=== PATIENT | male | born 1945 | race Caucasian/White ===

== ENCOUNTER → 2019-10-11 | Outpatient (CLI) | payer MEDICARE, OTHER | LOC: CARD 12:51 | PROVIDERS: ATTEND Internal Medicine Cardiovascular Disease | DX: I48.91 Unspecified atrial fibrillation (principal); E11.9 Type 2 diabetes mellitus without complications; I10 Essential (primary) hypertension; E78.2 Mixed hyperlipidemia; I08.0 Rheumatic disorders of both mitral and aortic valves | CPT/HCPCS: 93306 ==

== ENCOUNTER → 2022-01-28 | Outpatient (CLI) | payer MEDICARE, OTHER | LOC: CARD 11:29 | PROVIDERS: ATTEND Internal Medicine Cardiovascular Disease | DX: I08.3 Combined rheumatic disorders of mitral, aortic and tricuspid valves (principal); I48.21 Permanent atrial fibrillation | CPT/HCPCS: 93306 ==

== ENCOUNTER 2023-05-21 13:23 | Inpatient (IN) | payer MEDICARE, OTHER ==
[~2023-05-21] VITALS: Ht 161 cm; Wt 84.0 kg
[2023-05-21] MEDS ORDERED: NS IV 1000 ML 1,000 ML IV STA ×2 (13:41→14:10)
--- NOTE | 2023-05-21 13:41 | ED General ---
General Chief Complaint: Fever-Adult/Adol Stated Complaint: SHAKING Nursing Triage Note: PT STATES HAS BEEN SHAKING FOR APPROX 3 HOURS, PT HAS TEMP 38.4 UPON ARRIVAL, PT DENIES URINARY SX, PT STATES HAS A SL COUGH. DENIES PAIN Source of Information: Patient Exam Limitations: No Limitations History of Present Illness Date Seen by Provider: May 21, 2023 Time Seen by Provider: 13:31 Initial Comments Patient is an 78-year-old male with a history of A-fib chronically anticoagulated as well as prostate issues who presents to the emergency room with a chief complaint of "shaking" over the last 3 hours or so. He states it started around 11 AM. He was feeling fine prior to this. He states he has had a little intermittent dysuria over the past few days. His appetite is a little diminished this afternoon, he did have some breakfast this morning. He has a mild cough that is not productive of any sputum. He denies runny nose, earache or sore throat. No chest pain. No palpitations. No abdominal pain, nausea or vomiting. Normal bowel movements. Has a follow-up scheduled with a urologist in [place] in June. He states that he is compliant with his daily medications including his blood thinners. Notably on physical exam he is slightly tachycardic at 112. Blood pressure is good. Room air sats are good. His temp is 101. He does have a fairly edematous left leg that he states is not bothering him. Timing/Duration: 1-3 Hours Severity: Moderate Associated Systoms: Malaise Allergies and Home Medications Allergies Coded Allergies: No Known Drug Allergies (Unverified , 05/21/23) Patient Home Medication List Home Medication List Reviewed: Yes Review of Systems Review of Systems Constitutional: see HPI, malaise EENTM: no symptoms reported Respiratory: cough Cardiovascular: no symptoms reported Gastrointestinal: no symptoms reported Genitourinary: dysuria Musculoskeletal: no symptoms reported Skin: no symptoms reported Psychiatric/Neurological: No Symptoms Reported All Other Systems Reviewed Negative Unless Noted: Yes Past Kordxpk-Hmojcg-Hsshpg Hx Patient Social History Tobacco Use?: No Substance use?: No Alcohol Use?: No Pt feels they are or have been: No Immunizations Up To Date First/Initial COVID19 Vaccinat: YES Second COVID19 Vaccination Jj: YES Past Medical History Surgery/Hospitalization HX: DIABETES, A-FIB, L SHOULDER REPLACEMENT Physical Exam Vital Signs Vital Signs - First Documented 05/21/23 13:30 Temp 38.4 Pulse 120 Resp 18 B/P (MAP) 144/62 (89) Pulse Ox 98 Capillary Refill : Less Than 3 Seconds Height, Weight, BMI Height: '" Weight: lbs. oz. kg; 25.00 BMI Method: General Appearance: No Apparent Distress, WD/WN Eyes: Bilateral Eye Normal Inspection, Bilateral Eye PERRL, Bilateral Eye EOMI HEENT: PERRL/EOMI Neck: Normal Inspection Respiratory: Lungs Clear, Normal Breath Sounds, No Accessory Muscle Use, No Respiratory Distress Cardiovascular: Regular Rate, Rhythm, Normal Peripheral Pulses, Tachycardia Gastrointestinal: Normal Bowel Sounds, Non Tender, Soft Extremity: Normal Range of Motion, Non Tender, No Calf Tenderness; No Calf Tenderness; Swelling (LLE, no) Neurologic/Psychiatric: Alert, Oriented x3, No Motor/Sensory Deficits, Normal Mood/Affect, roving court reporter II-XII Norm as Tested Skin: Normal Color, Warm/Dry; No Rash Focused Exam Lactate Level 05/21/23 17:20: Lactic Acid Level 3.19*H Time of Focused Exam: 15:30 Respiratory: Lungs Clear, Normal Breath Sounds, No Accessory Muscle Use, No Respiratory Distress Cardiovascular: Irregularly Irregular, Tachycardia Capillary Refill: Less Than 3 Seconds Peripheral Pulses: 1+ Radial Pulses (R), 1+ Radial Pulses (L) Skin: normal color, warm/dry Lactic Acid Level Laboratory Tests Test 05/21/23 13:35 05/21/23 15:34 05/21/23 17:20 Lactic Acid Level 4.93 MMOL/L (0.50-2.00) *H 3.02 MMOL/L (0.50-2.00) *H 3.19 MMOL/L (0.50-2.00) *H Within 3hrs of presentation: Admin fluids, Admin ABX, Blood cultures prior to ABX's, Focus exam, Lactate level Progress/Results/Core Measures Suspected Sepsis SIRS Temperature: Pulse: 120 Respiratory Rate: 18 Laboratory Tests 05/21/23 13:35: White Blood Count 6.2 Blood Pressure 144 /62 Mean: 89 05/21/23 17:20: Lactic Acid Level 3.19*H Laboratory Tests 05/21/23 13:35: Creatinine 1.29, INR Comment 3.6H, Platelet Count 135, Total Bilirubin 0.7 Results/Orders Lab Results Laboratory Tests Test 05/21/23 13:35 05/21/23 15:34 05/21/23 15:50 05/21/23 17:20 Range/Units White Blood Count 6.2 4.3-11.0 10^3/uL Red Blood Count 4.56 4.30-5.52 10^6/uL Hemoglobin 11.5 L 13.3-17.7 g/dL Hematocrit 37 L 40-54 % Mean Corpuscular Volume 82 80-99 fL Mean Corpuscular Hemoglobin 25 25-34 pg Mean Corpuscular Hemoglobin Concent 31 L 32-36 g/dL Red Cell Distribution Width 18.9 H 10.0-14.5 % Platelet Count 135 130-400 10^3/uL Mean Platelet Volume 10.9 9.0-12.2 fL Immature Granulocyte % (Auto) 0 % Neutrophils (%) (Auto) 90 H 42-75 % Lymphocytes (%) (Auto) 7 L 12-44 % Monocytes (%) (Auto) 2 0-12 % Eosinophils (%) (Auto) 0 0-10 % Basophils (%) (Auto) 0 0-10 % Neutrophils # (Auto) 5.6 1.8-7.8 10^3/uL Lymphocytes # (Auto) 0.4 L 1.0-4.0 10^3/uL Monocytes # (Auto) 0.2 0.0-1.0 10^3/uL Eosinophils # (Auto) 0.0 0.0-0.3 10^3/uL Basophils # (Auto) 0.0 0.0-0.1 10^3/uL Immature Granulocyte # (Auto) 0.0 0.0-0.1 10^3/uL Neutrophils % (Manual) 95 % Lymphocytes % (Manual) 5 % Monocytes % (Manual) 0 % Eosinophils % (Manual) 0 % Basophils % (Manual) 0 % Band Neutrophils 0 % Anisocytosis MODERATE Prothrombin Time 35.4 H 12.2-14.7 SEC INR Comment 3.6 H 0.8-1.4 Activated Partial Thromboplast Time 30 24-35 SEC Sodium Level 137 135-145 MMOL/L Potassium Level 4.4 3.6-5.0 MMOL/L Chloride Level 103 98-107 MMOL/L Carbon Dioxide Level 19 L 21-32 MMOL/L Anion Gap 15 H 5-14 MMOL/L Blood Urea Nitrogen 22 H 7-18 MG/DL Creatinine 1.29 0.60-1.30 MG/DL Estimat Glomerular Filtration Rate 56 BUN/Creatinine Ratio 17 Glucose Level 159 H 70-105 MG/DL Lactic Acid Level 4.93 *H 3.02 *H 3.19 *H 0.50-2.00 MMOL/L Calcium Level 8.9 8.5-10.1 MG/DL Corrected Calcium 9.1 8.5-10.1 MG/DL Total Bilirubin 0.7 0.1-1.0 MG/DL Aspartate Amino Transf (AST/SGOT) 28 5-34 U/L Alanine Aminotransferase (ALT/SGPT) 17 0-55 U/L Alkaline Phosphatase 82 40-136 U/L Total Protein 6.9 6.4-8.2 GM/DL Albumin 3.8 3.2-4.5 GM/DL Urine Color YELLOW Urine Clarity CLEAR Urine pH 5.5 5-9 Urine Specific [place] 1.015 L 1.016-1.022 Urine Protein NEGATIVE NEGATIVE Urine Glucose (UA) NEGATIVE NEGATIVE Urine Ketones NEGATIVE NEGATIVE Urine Nitrite NEGATIVE NEGATIVE Urine Bilirubin NEGATIVE NEGATIVE Urine Urobilinogen 1.0 < = 1.0 MG/DL Urine Leukocyte Esterase 2+ H NEGATIVE Urine RBC (Auto) 3+ H NEGATIVE Urine RBC 50-100 H /HPF Urine WBC 10-25 H /HPF Urine Squamous Epithelial Cells 0-2 /HPF Urine Crystals NONE /LPF Urine Bacteria FEW H /HPF Urine Casts NONE /LPF Urine Mucus NEGATIVE /LPF Urine Culture Indicated CULTURE PENDING My Orders Orders - ION ANNA MD Cbc With Automated Diff (05/21/23 13:41) Comprehensive Metabolic Panel (05/21/23 13:41) Blood Culture (05/21/23 13:41) Sputum Culture (05/21/23 13:41) Urinalysis (05/21/23 13:41) Urine Culture (05/21/23 13:41) Protime With Inr (05/21/23 13:41) Partial Thromboplastin Time (05/21/23 13:41) Chest 1 View, Ap/Pa Only (05/21/23 13:41) Ed Iv/Invasive Line Start (05/21/23 13:41) Ed Iv/Invasive Line Start (05/21/23 13:41) Vital Signs Adult Sepsis Patie Q15M (05/21/23 13:41) O2 (05/21/23 13:41) Remove Rings In Anticipation O (05/21/23 13:41) Lactic Acid Analyzer (05/21/23 13:41) Ns Iv 1000 Ml (Sodium Chloride 0.9%) (05/21/23 13:41) Acetaminophen Tablet (Tylenol Tablet) (05/21/23 13:45) Manual Differential (05/21/23 13:35) Ns Iv 1000 Ml (Sodium Chloride 0.9%) (05/21/23 14:10) Ceftriaxone Iv/Im (Rocephin Iv/Im) (05/21/23 14:30) Bladder Scan (05/21/23 15:34) Ct Chest/Abdomen/Pelvis Wo (05/21/23 16:34) Bladder Scan (05/21/23 16:34) Ed Admission (Communication) (05/21/23 18:19) Medications Given in ED Vital Signs/I&O 05/21/23 13:30 Temp 38.4 Pulse 120 Resp 18 B/P (MAP) 144/62 (89) Pulse Ox 98 Capillary Refill : Less Than 3 Seconds Blood Pressure Mean: 89 Progress Note #1: Time: 14:09 Progress Note NOtified by LEOBARDO Olmstead that patient's lactic acid just reported out at 4.9 Progress Note #2: Time: 14:10 Progress Note Patient seen and evaluated by me. Evaluation today includes physical exam, CBC, Chem-12, blood cultures, lactic acid, coags, urinalysis, single view chest x- ray. Pertinent physical exam findings well-developed well-nourished male in no acute distress with stable vital signs other than slight tachycardia at 112 bpm. Patient's lungs are clear, heart tachycardic. Distal pulses intact, 2+ radial pulses. Brisk capillary refill. Abdomen is soft and nontender. His left leg is quite edematous 2-3+ pitting edema. No focal neurologic findings. Differential diagnosis based on history and physical exam, urosepsis, bacteremia, pneumonia. Labs, independently reviewed and interpreted by me. His CBC shows a total white blood cell count of 6.2 with 98% segmented neutrophils, 7% lymphs. Hemoglobin of 11.5, hematocrit of 37. Platelet count is 135. Chem-12 shows a CO2 slightly low at 19. His BUN and creatinine are 22 and 1.29. Serum glucose slightly elevated at 159. His LFTs are normal. Urine specimen has not been obtained as of yet. His lactic acid is quite elevated at 4.93. PT 35, INR 3.6, PTT 30. Chest x-ray reveals 2 small 1 cm nodules in the left lung delgadillo. No effusion. He does have some haziness over the costophrenic angle on the left. Patient is treated in the emergency department initially with a gram of Tylenol and 1 L of normal saline. Calculating out his 30 mils per kilogram fluid bolus for severe sepsis he would receive a total of 2310 mL.. Awaiting urine specimen to evaluate for urinary tract infection. No ahead and order antibiotics at this time as I am quite sure with his dysuria this is the etiology of his fever. Progress Note #3: Time: 15:36 Progress Note Patient still has not produced a Urine specimen (abx not given yet) will bladder scan and straight cath. Progress Note #4: Time: 18:00 Progress Note Case was discussed with Dr Ortiz ([facility] Hospitalist) who requested post void bladder scan and CT Chest and Abd/pelvis non contrast. Patient was able to void a second time and residual was 5ml. HIs CT was quite concerning for prostatic malignancy with mass identified in the region of the prostate and multiple other findings concerning for metastasis. I was able to go in and speak with the patient and his sister who is at the bedside and relay these findings. Many que stions and concerns as to how he will move forward that I deferred to asking his inpatient team. Patient is feeling much better with IVF and has received Rocephin for suspected UTI. HIs Lactic has decreased to 3. Dr Ortiz would like him overnight in the ICU. HR still about 103 with slightly lower BP in the 110 systolic range. Diagnostic Imaging Diagonstic Imaging: Xray Plain Films/CT/US/NM/MRI: chest Comments NAME: BEN GREGORY MED REC#: [id number] PT STATUS: REG ER : 1945 PHYSICIAN: ION ANNA MD ADMIT DATE: 05/21/23/ER Draft Date of Exam:05/21/23 CHEST 1 VIEW, AP/PA ONLY INDICATION: Fever. COMPARISON: None. FINDINGS: Single frontal radiographic view of the chest was obtained and shows normal cardiac silhouette and pulmonary vasculature. Evaluation of the lung delgadillo demonstrates two nodules projecting over the left lung. These measure 1.2 and 1.1 cm. No large effusion or pneumothorax is seen. Osseous structures show no gross acute abnormalities. IMPRESSION: 1. Left-sided pulmonary nodular opacities. In the setting of fever, septic emboli should be within the differential. True soft tissue nodule is also consideration. Correlation with CT chest is advised. Dictated on workstation # [id number] Dict: 05/21/23 1401 Trans: 05/21/23 1404 [id number] Interpreted by: SNEHA FORD MD Electronically signed by: [facility]: CT Comments [facility] [place], [place] NAME: BEN GREGORY [facility] REC#: [id number] PT STATUS: REG ER : 1945 PHYSICIAN: ION ANNA MD ADMIT DATE: 05/21/23/ER Signed Date of Exam:05/21/23 CT CHEST/ABDOMEN/PELVIS WO Procedure: CT chest, abdomen, and pelvis without contrast. Technique: Multiple contiguous axial images were obtained through the chest, abdomen, and pelvis without the use of intravenous contrast. Auto Exposure Controls were utilized during the CT exam to meet ALARA standards for radiation dose reduction. Date: May 21, 2023. Indication: 78-year-old male, pulmonary nodules, hematuria. Comparison: Chest radiograph May 21, 2023. No additional comparison imaging is not available. Findings: There are numerous noncalcified bilateral pulmonary nodules. One of the largest in the right lower lobe is on axial image 77 and measures 2.6 cm in size. One of the largest in the left lower lobe as on axial image 73 measuring 1.7 cm in size. One of the largest in the left upper lobe measures 1.5 cm in size on axial image 75. Numerous additional smaller nodules are present in the right upper lobe, right middle lobe, left lower lobe, left upper lobe. There is no pneumothorax. There is no pleural effusion. The central airways are patent. There is mild atelectasis in the left lower lobe. There is no additional focal airspace consolidation. There are coronary artery calcifications and additional areas of atherosclerotic disease. The heart is not grossly enlarged. There is no abnormally enlarged mediastinal or axillary lymph node meeting CT size criteria for adenopathy. The liver is grossly unremarkable in size and contour. There are multiple gallstones. There is no evidence of acute cholecystitis. There is no biliary ductal dilation. Noncontrast pancreatic parenchymal assessment is unremarkable. The spleen is normal in size. There is a low-attenuation left renal lesion measuring 2.8 cm size in axial image 120. Internal attenuation is 9 Hounsfield units consistent with benign cyst. There is an additional left renal lesion on axial image 137 measuring 2.2 cm in size. Internal attenuation is 25 Hounsfield units which is indeterminate. There is a right renal cyst on axial image 149 which measures 6.5 cm in size. There is an exophytic benign right renal cyst on axial image 151 as well. There are nonobstructing left renal stones. There is no hydronephrosis. There is no identified ureteral stone. There is a small left posterolateral urinary bladder diverticulum on axial image 196. There is masslike prominence centered in the region of the prostate extending beyond the expected pancreatic margins and also in the region of the urinary bladder. There is direct contact of the distal sigmoid colon near the level of the rectosigmoid junction. There is mild diverticulosis without evidence of acute diverticulitis. There is no evidence of acute appendicitis. There is no free intraperitoneal air. There is no drainable fluid collection. There are atherosclerotic calcifications. There is a right pelvic sidewall lymph node on axial image 199 likely reflecting metastatic brenda disease measuring 9 mm in short axis. There is nonspecific subcutaneous edema at the level of the left thigh. There are multilevel degenerative changes of the spine. 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 There is no identified bone lesion concerning for a bone metastasis. Impression: 1. 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 2. Large mass centered in the region of the prostate extending in the region of the anterior bladder and also directly contacting the distal sigmoid colon near the level of the rectosigmoid junction concerning for malignancy at this site. 3. 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 4. Indeterminate left renal lesion measuring 2.2 cm in size. Dedicated renal mass protocol CT abdomen without and with intravenous contrast is recommended for further assessment. Dictated by: Dictated on workstation # [id number] Dict: 05/21/23 1654 Trans: 05/21/23 1718 [id number] Interpreted by: JACKIE WILLIAM MD Electronically signed by: JACKIE WILLIAM MD 05/21/238 Departure Communication (Admissions) Time/Spoke to Admitting Phy: 16:[address] Ortiz on for [facility] Hospitalist Impression Primary Impression: Sepsis Qualified Codes: A41.9 - Sepsis, unspecified organism Additional Impressions: UTI (urinary tract infection) Qualified Codes: N39.0 - Urinary tract infection, site not specified; R31.9 - Hematuria, unspecified Prostate mass Disposition: ADMITTED INPATIENT Condition: Stable Admissions Decision to Admit Reason: Admit from ER (General) Decision to Admit/Date: May 21, 2023 Time/Decision to Admit Time: 15:36 Departure-Patient Inst. Referrals: [facility] (PCP) Primary Care Physician VIKAS GOODWIN APRN (Family) Primary Care Physician Copy Copies To 1: NEHAL MERINO KATHRYN M MD May 21, 2023 13:41
[2023-05-21] MEDS ORDERED: ACETAMINOPHEN 500 MG TAB (TYLENOL) PO ONE (13:45)
[2023-05-21 13:47] LABS: BASOPHILS % (AUTO) 0 % (0-10); EOSINOPHILS % (AUTO) 0 % (0-10); HEMATOCRIT 37 % (40-54); HEMOGLOBIN 11.5 g/dL (13.3-17.7); LYMPHOCYTES # (AUTO) 0.4 10^3/uL (1.0-4.0); LYMPHOCYTES % (AUTO) 7 % (12-44); MEAN CORPUSCULAR HEMOGLOBIN 25 pg (25-34); MEAN CORPUSCULAR HGB CONC 31 g/dL (32-36); MEAN CORPUSCULAR VOLUME 82 fL (80-99); MEAN PLATELET VOLUME 10.9 fL (9.0-12.2); MONOCYTES # (AUTO) 0.2 10^3/uL (0.0-1.0); MONOCYTES % (AUTO) 2 % (0-12); NEUTROPHILS # (AUTO) 5.6 10^3/uL (1.8-7.8); NEUTROPHILS % (AUTO) 90 % (42-75); PLATELET COUNT 135 10^3/uL (130-400); WHITE BLOOD COUNT 6.2 10^3/uL (4.3-11.0)
[2023-05-21 13:52] LABS: ALBUMIN 3.8 GM/DL (3.2-4.5); INR 3.6 (0.8-1.4); POTASSIUM 4.4 MMOL/L (3.6-5.0); PROTHROMBIN TIME PATIENT 35.4 SEC (12.2-14.7)
[2023-05-21 13:53] LABS: CALCIUM 8.9 MG/DL (8.5-10.1)
[2023-05-21 13:55] LABS: TOTAL PROTEIN 6.9 GM/DL (6.4-8.2)
[2023-05-21 13:56] LABS: BILIRUBIN,TOTAL 0.7 MG/DL (0.1-1.0)
[2023-05-21 13:58] LABS: CREATININE SERUM 1.29 MG/DL (0.60-1.30)
[2023-05-21 14:02] LABS: ANISOCYTOSIS MODERATE; BAND NEUTROPHILS 0 %; BASOPHILS % (MANUAL) 0 %; EOSINOPHILS % (MANUAL) 0 %; LYMPHOCYTES % (MANUAL) 5 %; MONOCYTES % (MANUAL) 0 %; NEUTROPHILS % (MANUAL) 95 %
--- NOTE | 2023-05-21 14:05 | Diagnostic Imaging Report ---
INDICATION: Fever. COMPARISON: None. FINDINGS: Single frontal radiographic view of the chest was obtained and shows normal cardiac silhouette and pulmonary vasculature. Evaluation of the lung delgadillo demonstrates two nodules projecting over the left lung. These measure 1.2 and 1.1 cm. No large effusion or pneumothorax is seen. Osseous structures show no gross acute abnormalities. IMPRESSION: 1. Left-sided pulmonary nodular opacities. In the setting of fever, septic emboli should be within the differential. True soft tissue nodule is also consideration. Correlation with CT chest is advised. Dictated by: Dictated on workstation # [id number]
[2023-05-21] MEDS ORDERED: cefTRIAXone IV/IM 1,000 MG in NS (IVPB) 50 ML IV ONE (14:30)
[2023-05-21 16:00] LABS: BILIRUBIN,URINE NEGATIVE (NEGATIVE); CLARITY,URINE CLEAR; COLOR,URINE YELLOW; GLUCOSE, URINE (UA) NEGATIVE (NEGATIVE); KETONES,URINE NEGATIVE (NEGATIVE); LEUKOCYTE ESTERASE ,URINE 2+ (NEGATIVE); NITRITE,URINE NEGATIVE (NEGATIVE); PH,URINE 5.5 (5-9); PROTEIN,URINE NEGATIVE (NEGATIVE)
[2023-05-21 16:11] LABS: RBC,URINE 50-100 /HPF
[2023-05-21 16:12] LABS: BACTERIA,URINE FEW /HPF; SQUAMOUS EPITHELIAL CELL,UR 0-2 /HPF
--- NOTE | 2023-05-21 17:08 | Diagnostic Imaging Report ---
Procedure: CT chest, abdomen, and pelvis without contrast. Technique: Multiple contiguous axial images were obtained through the chest, abdomen, and pelvis without the use of intravenous contrast. Auto Exposure Controls were utilized during the CT exam to meet ALARA standards for radiation dose reduction. Date: May 21, 2023. Indication: 78-year-old male, pulmonary nodules, hematuria. Comparison: Chest radiograph May 21, 2023. No additional comparison imaging is not available. Findings: There are numerous noncalcified bilateral pulmonary nodules. One of the largest in the right lower lobe is on axial image 77 and measures 2.6 cm in size. One of the largest in the left lower lobe as on axial image 73 measuring 1.7 cm in size. One of the largest in the left upper lobe measures 1.5 cm in size on axial image 75. Numerous additional smaller nodules are present in the right upper lobe, right middle lobe, left lower lobe, left upper lobe. There is no pneumothorax. There is no pleural effusion. The central airways are patent. There is mild atelectasis in the left lower lobe. There is no additional focal airspace consolidation. There are coronary artery calcifications and additional areas of atherosclerotic disease. The heart is not grossly enlarged. There is no abnormally enlarged mediastinal or axillary lymph node meeting CT size criteria for adenopathy. The liver is grossly unremarkable in size and contour. There are multiple gallstones. There is no evidence of acute cholecystitis. There is no biliary ductal dilation. Noncontrast pancreatic parenchymal assessment is unremarkable. The spleen is normal in size. There is a low-attenuation left renal lesion measuring 2.8 cm size in axial image 120. Internal attenuation is 9 Hounsfield units consistent with benign cyst. There is an additional left renal lesion on axial image 137 measuring 2.2 cm in size. Internal attenuation is 25 Hounsfield units which is indeterminate. There is a right renal cyst on axial image 149 which measures 6.5 cm in size. There is an exophytic benign right renal cyst on axial image 151 as well. There are nonobstructing left renal stones. There is no hydronephrosis. There is no identified ureteral stone. There is a small left posterolateral urinary bladder diverticulum on axial image 196. There is masslike prominence centered in the region of the prostate extending beyond the expected pancreatic margins and also in the region of the urinary bladder. There is direct contact of the distal sigmoid colon near the level of the rectosigmoid junction. There is mild diverticulosis without evidence of acute diverticulitis. There is no evidence of acute appendicitis. There is no free intraperitoneal air. There is no drainable fluid collection. There are atherosclerotic calcifications. There is a right pelvic sidewall lymph node on axial image 199 likely reflecting metastatic brenda disease measuring 9 mm in short axis. There is nonspecific subcutaneous edema at the level of the left thigh. There are multilevel degenerative changes of the spine. 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 There is no identified bone lesion concerning for a bone metastasis. Impression: 1. 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 2. Large mass centered in the region of the prostate extending in the region of the anterior bladder and also directly contacting the distal sigmoid colon near the level of the rectosigmoid junction concerning for malignancy at this site. 3. 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 4. Indeterminate left renal lesion measuring 2.2 cm in size. Dedicated renal mass protocol CT abdomen without and with intravenous contrast is recommended for further assessment. Dictated by: Dictated on workstation # [id number]
[2023-05-21] MEDS ORDERED: ANTACID SUSP 30 ML UDC (MYLANTA) PO PRN (18:30)
[2023-05-21] MEDS ORDERED: polyethylene glycoL POWDER 17 GM (MIRALAX) PACK PO PRN (18:30)
[2023-05-21] MEDS ORDERED: ACETAMINOPHEN 325 MG TABLET PO PRN (18:30)
[2023-05-21] MEDS ORDERED: BISACODYL 10 MG SUPP (DULCOLAX) PR PRN (18:30)
[2023-05-21] MEDS ORDERED: MILK OF MAGNESIA 400 MG/5 ML 30 ML UDC PO PRN (18:30)
[2023-05-21] MEDS ORDERED: diphenhydrAMINE 50 MG/ML INJ (BENADRYL) IVP PRN (18:30)
[2023-05-21] MEDS ORDERED: CALCIUM CARBONATE 500 MG (TUMS) TAB.CHEW PO PRN (18:30)
[2023-05-21] MEDS ORDERED: NS IV 500 ML 500 ML IV PRN (18:30)
[2023-05-21] MEDS ORDERED: LACTULOSE SYRUP 10GM/15ML (ENULOSE) 30ML UDC PO PRN (18:30)
[2023-05-21] MEDS ORDERED: ONDANSETRON 4 MG/2 ML (SDV) Z0FRAN IV PRN (18:30)
[2023-05-21] MEDS ORDERED: diphenhydrAMINE 25 MG TAB (BENADRYL) PO PRN (18:30)
[2023-05-21] MEDS ORDERED: MELATONIN 3 MG TABLET PO PRN (18:30)
[2023-05-21] MEDS ORDERED: HYDROmorphone 2 MG/ML VIAL (DILAUDID) IV PRN (18:30)
[2023-05-21] MEDS ORDERED: ONDANSETRON 4 MG (ZOFRAN) ORAL DISSOLVE TAB PO PRN (18:30)
[2023-05-21 18:53] VITALS: BP 144/62
[2023-05-21] MEDS ORDERED: RT-ALBUTEROL SULF 2.5 MG/3 ML PRE-MIX VIAL INH PRN (19:00)
[2023-05-21] MEDS: NS IV 1000 ML 1,000 ML IV SCH (19:33)
[2023-05-21] MEDS: SENNOSIDES 8.6 MG (SENOKOT) TAB PO SCH (20:10)
[2023-05-21] MEDS: DOCUSATE SODIUM 100 MG (COLACE) CAP PO SCH (20:10)
[2023-05-22] MEDS: NS IV 1000 ML 1,000 ML IV SCH ×3 (02:02→20:56)
[2023-05-22 04:59] LABS: BASOPHILS % (AUTO) 0 % (0-10); EOSINOPHILS % (AUTO) 0 % (0-10); HEMATOCRIT 31 % (40-54); HEMOGLOBIN 9.6 g/dL (13.3-17.7); LYMPHOCYTES # (AUTO) 0.1 10^3/uL (1.0-4.0); LYMPHOCYTES % (AUTO) 2 % (12-44); MEAN CORPUSCULAR HEMOGLOBIN 25 pg (25-34); MEAN CORPUSCULAR HGB CONC 32 g/dL (32-36); MEAN CORPUSCULAR VOLUME 80 fL (80-99); MEAN PLATELET VOLUME 11.8 fL (9.0-12.2); MONOCYTES # (AUTO) 0.2 10^3/uL (0.0-1.0); MONOCYTES % (AUTO) 2 % (0-12); NEUTROPHILS # (AUTO) 8.3 10^3/uL (1.8-7.8); NEUTROPHILS % (AUTO) 96 % (42-75); PLATELET COUNT 104 10^3/uL (130-400); WHITE BLOOD COUNT 8.7 10^3/uL (4.3-11.0)
[2023-05-22 05:18] LABS: ALBUMIN 3.1 GM/DL (3.2-4.5); POTASSIUM 4.4 MMOL/L (3.6-5.0)
[2023-05-22 05:20] LABS: CALCIUM 8.1 MG/DL (8.5-10.1)
[2023-05-22 05:21] LABS: TOTAL PROTEIN 5.8 GM/DL (6.4-8.2)
[2023-05-22 05:23] LABS: BILIRUBIN,TOTAL 0.9 MG/DL (0.1-1.0)
[2023-05-22 05:24] LABS: CREATININE SERUM 1.18 MG/DL (0.60-1.30)
[2023-05-22 05:27] LABS: MAGNESIUM 1.4 MG/DL (1.6-2.4)
[2023-05-22] MEDS: MAGNESIUM 1 GM/100 ML IVPB 100 ML IV SCH ×5 (05:49→12:12)
[2023-05-22] MEDS ORDERED: KCL 20 MEQ TAB (K-DUR) PO SCH (06:00)
[2023-05-22] MEDS ORDERED: POTASSIUM CL 10MEQ/50ML IVPB 50 ML IV SCH (06:00)
[2023-05-22] MEDS ORDERED: MAGNESIUM 1 GM/100 ML IVPB 100 ML IV SCH (06:00)
--- NOTE | 2023-05-22 09:07 | Diagnostic Imaging Report ---
EXAMINATION: Chest 1 view HISTORY: Sepsis COMPARISON: 05/21/2023 FINDINGS: No edema or pneumonia. No pleural effusion or pneumothorax. A few nodular opacities project over the lungs. IMPRESSION: 1. Nodular opacities projecting over the lungs in keeping with the nodule seen on prior CT. Dictated by: Dictated on workstation # [id number]
--- NOTE | 2023-05-22 09:32 | History & Physical-Hospitalist ---
VELMA RANDLE 05/22/23 0932: History of Present Illness HPI/Chief Complaint Everett Jung is an 78yo M with past medical history of atrial fibrillation on anticoagulation, BPH, and diabetes mellitus who presented to the ED on 05/21 with complaints of shaking that began mid day. He reported some dysuria for the previous few days. He denies any recent sick contacts. Denies feeling feverish at home but did not take his temperature. He has never had these types of symptoms before. Denies any pain but does report some discomfort when urinating that has improved since admission. In the ED he was found be tachycardic with a slight fever of 101. WBC was normal but lactic acid was significantly elevated at 4.9. His UA was positive for leukocyte esterase, RBCs, WBCs, and bacteria. He was started on ceftriaxone with cultures pending. CT chest ab pelv revealed likely extensive metastatic process. There is a large mass in the prostate extending to bladder and contacting sigmoid colon. Enlarged R pelvic lymph nodes. 2cm L renal mass, bilateral thyroid nodules consistent with mets. He also has 2 nodules in his L lung. ER physician discussed these findings with the patient and his sister. He was admitted for further management of his urosepsis. On exam today he reports feeling much better. Denies fever/chills. Says dysuria is somewhat improved. Still having some urinary urgency. Denies suprapubic pain. He also denies chest pain, shortness of breath, palpitations, N/V/D. Patient is requesting to visit with Dr. Rodriguez due to family recommendations. Source: patient Exam Limitations: no limitations Date Seen 05/22/23 Time Seen by a Provider: 09:27 Attending Physician Center/[facility] PCP Admitting Physician: Yamini Norwood DO Attending Physician: Yamini Norwood DO Referring Physician Date of Admission May 21, 2023 at 18:24 Home Medications & Allergies Home Medications Reviewed patient Home Medication Reconciliation performed by pharmacy medication reconciliations automotive exhaust emissions technician and/or nursing. Patients Allergies have been reviewed. Allergies Allergies Coded Allergies No Known Drug Allergies (Unverified05/21/23) Past Asjxbgr-Dzvgxn-Jxbphh Hx Patient Social History Tobacco Use?: No Use of E-Cig and/or Vaping dev: No Substance use?: No Alcohol Use?: Yes Alcohol type: Hard Liquor, Wine Alcohol Frequency: Couple times a week Pt feels they are or have been: No Immunizations Up To Date First/Initial COVID19 Vaccinat: YES Second COVID19 Vaccination Jj: YES Current Status Advance Directives: No Communicates: Verbally Primary Language: [place] Preferred Spoken Language: [place]ian Implanted or Applied Medical D: Orthopedic hardware Past Medical History Surgeries: Orthopedic (L shoulder) Atrial Fibrillation Prostate Problems Diabetes, Non-Insulin dep Loss of Vision: Denies Hearing Impairment: Denies Family Medical History No Pertinent Family Hx Review of Systems Constitutional: No chills, No diaphoresis, No fever EENTM: No hearing loss, No vision loss, No hoarseness, No throat pain Respiratory: cough; No short of breath, No wheezing Cardiovascular: No chest pain, No palpitations Gastrointestinal: No abdominal pain, No nausea, No vomiting Genitourinary: dysuria, frequency; No hematuria Skin: No change in color Psychiatric/Neurological: Denies Headache, Denies Seizure, Denies Weakness Physical Exam Physical Exam Vital Signs Vital Signs - First Documented 05/21/23 05/21/23 13:30 18:53 Temp 38.4 Pulse 120 Resp 18 B/P (MAP) 144/62 (89) Pulse Ox 98 FiO2 21 Capillary Refill : Less Than 3 Seconds Height, Weight, BMI Height: '" Weight: lbs. oz. kg; 33.06 BMI Method: General Appearance: No Apparent Distress, WD/WN HEENT: PERRL/EOMI, Moist Mucous Membranes Neck: Supple Respiratory: Lungs Clear, Normal Breath Sounds, No Accessory Muscle Use Cardiovascular: Normal Peripheral Pulses, Irregularly Irregular, Tachycardia Gastrointestinal: Non Tender, Soft Rectal: Deferred Extremity: Swelling (LLE) Neurologic/Psychiatric: Alert, Oriented x3, Normal Mood/Affect Skin: Normal Color, Warm/Dry Results Results/Procedures Labs Laboratory Tests 05/21/23 13:35 05/22/23 04:19 Patient resulted labs reviewed. Imaging: Reviewed Imaging Films, Reviewed Imaging Report Assessment/Plan Admission Diagnosis UTI Sepsis Probable neoplasm with metastasis Assessment and Plan UTI Sepsis Lactic acidosis UA positive for LE, RBCs, WBCs, and bacteria Urine culture pending Blood culture pending Sepsis with tachycardia, lactic acidosis, tachypnea, and probable source of infection Continue ceftriaxone 1000mg q24hr continue IV fluids WBC normal continue monitoring lactic acid TeleICU consulted appreciate recs Probable malignancy with mets CT very suspicious for malignancy Will work on setting up close outpatient follow up with Dr Rodriguez, Heme/Onc after DC Patient aware of his CT finding per ED provider Prostatic mass could be predisposing him to UTI due to urinary stasis/ retention Chronic atrial fibrillation on anticoagulation xarelto 15mg daily continue telemetry Anemia Hgb 9.6 this morning down from 11.5 MCV low normal at 80 Likely related to chronic disease/ malignancy transfuse if less than 7 Monitor H/H daily Elevated INR 3.6 no signs of bleed, hemodynamically stable continue to monitor Diet- regular DVT ppx- anticoagulated with xarelto Code- full Move to 4th floor YAMINI NORWOOD DO 05/22/23 2133: Assessment/Plan Admission Diagnosis Admission Status: Inpatient Order (span 2 midnights) Reason for Inpatient Admission: sepsis Supervisory-Addendum Brief Verification & Attestation Participated in pt care: history, MDM, physical Personally performed: exam, history, MDM, supervision of care Care discussed with: Medical Student Procedures: n/a Results interpretation: Verified all documentation Verification and Attestation of Medical Student E/M Service A medical student performed and documented this service in my presence. I reviewed and verified all information documented by the medical student and made modifications to such information, when appropriate. I personally performed the physical exam and medical decision making. Yamini Norwood, May 22, 2023,21:33 VELMA RANDLE May 22, 2023 09:32 YAMINI NORWOOD DO May 22, 2023 21:33
--- NOTE | 2023-05-22 11:35 | Physical Therapy Evaluation ---
PT Evaluation-General Medical Diagnosis Admission Date May 22, 2023 at 09:43 Medical Diagnosis: sepsis/UTI Onset Date: May 22, 2023 Therapy Diagnosis Therapy Diagnosis: debility Precautions Precautions/Isolations: Fall Prevention, Standard Precautions Referral Physician: Diana Reason for Referral: Evaluation/Treatment Medical History Pertinent Medical History: Atrial Fib Current History ER secondary to "shaking" for 3 hours (fever) Social History Home: Single Level Current Living Status: Significant Other Entry Into Home: Stairs With Railing PT Steps Into Home: 2 Prior Prior Level of Function SCALE: Activities may be completed with or without assistive devices. 9-Gtseefdzok-eeyhhuq completes the activity by him/herself with no assistance from a helper. 5-Set-up or Clean-up Assistance-helper sets up or cleans up; patient completes activity. [place] assists only prior to or following the activity. 4-Supervision or Touching Assistance-helper provides verbal cues and/or touching /steadying and/or contact guard assistance as patient completes activity. Assistance may be provided throughout the activity or intermittently. 3-Partial/Moderate Assistance-helper does LESS THAN HALF the effort. [place] lifts, holds or supports trunk or limbs, but provides less than half the effort. 2-Substantial/Maximal Assistance-helper does MORE THAN HALF the effort. [place] lifts or holds trunk or limbs and provides more than half the effort. 8-Dbbfusjzp-lfzpno does ALL the effort. Patient does none of the effort to complete the activity. Or, the assistance of 2 or more helpers is required for the patient to complete the activity. If activity was not attempted, code reason: 7-Patient Refused. 9-Not Applicable-not attempted and the patient did not perform the activity before the current illness, exacerbation or injury. 10-Not Attempted due to Environmental Limitations-(lack of equipment, weather restraints, etc.). 88-Not Attempted due to Medical Conditions or Safety Concerns. Bed Mobility: 6 Transfers (B,C,W/C): 6 Gait: 6 Stairs: 6 Indoor Mobility (Ambulation): Independent Stairs: Independent Prior Devices Use: None PT Evaluation-Current Subjective Patient reports he is going to start using the 4WW he has in his car. Objective Patient Orientation: Normal For Age Attachments: IV ROM/Strength ROM Lower Extremities bilateral LE WFL Strength Lower Extremities 4/5 grossly bilateral LE all planes Integumentary/Posture Bowel Incontinence: No Bladder Incontinence: Yes Posture WFL Neuromuscular (Tone, Coordination, Reflexes) grossly intact Sensory Vision: Wears Glasses Hearing: Functional Transfers Lying to Sitting/Side of Bed(Q: 6 Sit to Stand (QC): 6 Chair/Tzk-ec-Eaeyl Xfer(QC): 6 Gait Mode of Locomotion: Walk Anticipated Mode of Locomotion: Walk Walk 10 feet (QC): 6 Walk 50 ft with 2 Turns(QC): 6 Walk 150 ft (QC): 6 Distance: 275' Gait Assistive Device: FWW Comments/Gait Description safe and functional with no deviation Balance Sitting Static: Normal Sitting Dynamic: Normal Standing Static: Normal Standing Dynamic: Normal Assessment/Needs Patient is currently at independent [facility] with all gross motor skills safely and does not require skilled PT intervention at this time. Rehab Potential: Fair PT Plan Treatment/Plan Treatment Plan: Discontinue PT, goals met Treatment Duration: May 22, 2023 Frequency: 1 time per week Estimated Hrs Per Day: .25 hour per day Patient and/or Family Agrees t: Yes Time Time In: 1115 Time Out: 1127 DATE: May 22, 2023 Total Billed Treatment Time: 12 Total Billed Treatment 1 visit EVMod 12 min JO ANN YANEZ PT May 22, 2023 11:35
--- NOTE | 2023-05-22 11:40 | Occupational Therapy Eval ---
OT Evaluation-General/PLF Medical Diagnosis Admission Date May 22, 2023 at 09:43 Medical Diagnosis: sepsis Onset Date: May 22, 2023 Therapy Diagnosis Therapy Diagnosis: low activity tolerance Precautions Precautions/Isolations: Fall Prevention, Standard Precautions Safety Interventions: Bed Exit Alarm (chair) Weight Bear Status Weight Bearing Restriction: Full Weight Bearing Referral Physician: ENMA Junior Reason: Evaluation/Treatment Medical History Additional Medical History 78yo M with past medical history of atrial fibrillation on anticoagulation, BPH, and diabetes mellitus who presented to the ED on 05/21 with complaints of shaking that began mid day. He reported some dysuria for the previous few days. He denies any recent sick contacts. Denies feeling feverish at home but did not take his temperature. He has never had these types of symptoms before. Denies any pain but does report some discomfort when urinating that has improved since admission. In the ED he was found be tachycardic with a slight fever of 101. WBC was normal but lactic acid was significantly elevated at 4.9. His UA was positive for leukocyte esterase, RBCs, WBCs, and bacteria. He was started on ceftriaxone with cultures pending. CT chest ab pelv revealed likely extensive metastatic process. There is a large mass in the prostate extending to bladder and contacting sigmoid colon. Enlarged R pelvic lymph nodes. 2cm L renal mass, bilateral thyroid nodules consistent with mets. He also has 2 nodules in his L lung. ER physician discussed these findings with the patient and his sister. He was admitted for further management of his urosepsis. Social History Home: Single Level Current Living Status: Alone Entry Into Home: Stairs With Railing Steps Into Home: 2 ADL-Prior Level of Function SCALE: Activities may be completed with or without assistive devices. 8-Gssgxrpncf-sqrluyk completes the activity by him/herself with no assistance from a helper. 5-Set-up or Clean-up Assistance-helper sets up or cleans up; patient completes activity. [place] assists only prior to or following the activity. 4-Supervision or Touching Assistance-helper provides verbal cues and/or touching/steadying and/or contact guard assistance as patient completes activity . Assistance may be provided throughout the activity or intermittently. 3-Partial/Moderate Assistance-helper does LESS THAN HALF the effort. [place] lifts, holds or supports trunk or limbs, but provides less than half the effort. 2-Substantial/Maximal Assistance-helper does MORE THAN HALF the effort. [place] lifts or holds trunk or limbs and provides more than half the effort. 1-Urpilgqno-ghdxab does ALL the effort. Patient does none of the effort to complete the activity. Or, the assistance of 2 or more helpers is required for the patient to complete the activity. If activity was not attempted, code reason: 7-Patient Refused. 9-Not Applicable-not attempted and the patient did not perform the activity before the current illness, exacerbation or injury. 10-Not Attempted due to Environmental Limitations-(lack of equipment, weather restraints, etc.). 88-Not Attempted due to Medical Conditions or Safety Concerns. Self Care: Independent Functional Cognition: Independent DME/Equipment: Grab Bars Drive Self: Yes OT Current Status Subjective Agreeable to therapy, wants to go home Mental Status/Objective Patient Orientation: Person, Place, Situation Current Glasses/Contacts: Yes Upper Extremity ROM BUE ROM WFLS Upper Extremity Coordination BUE INTACT Upper Extremity Sensation INTACT Upper Extremity Strength WFLs Edema: LE ADL-Treatment Eating (QC): 6 Oral Hygiene (QC): 6 Upper Body Dressing (QC): 6 Lower Body Dressing (QC): 6 On/Off Footwear (QC): 6 Toileting Hygiene (QC): 6 Education OT Patient Education: Purpose of tx/functional activities, Rehab process Response to Teaching: Verbalize Understanding OT Usp Goals Shot Polisher And Inspector Goals 1=Demonstrate adherence to instructed precautions during ADL tasks. 2=Patient will verbalize/demonstrate understanding of assistive devices/modifications for ADL. 3=Patient will improve strength/tolerance for activity to enable patient to perform ADL's. OT Education/Plan Problem List/Assessment Assessment: No Skilled OT Needs ID'd Discharge Recommendations Plan/Recommendations: Discontinue OT Treatment Plan/Plan of Care Treatment,Training & Education: Yes Patient would benefit from OT for education, treatment and training to promote independence in ADL's, mobility, safety and/or upper extremity function for ADL's. Plan of Care: OTHER (EVAL ONLY) Treatment Duration: May 22, 2023 Frequency: 1 time per week Estimated Hrs Per Day: .25 hour per day Agreement: Yes Rehab Potential: Good Time Start Time: 11:15 Stop Time: 11:27 DATE: May 22, 2023 Total Time Billed (hr/min): 12 Billed Treatment Time EVL 12 JOSE L BROWN OT May 22, 2023 11:40
[2023-05-22] MEDS: DOCUSATE SODIUM 100 MG (COLACE) CAP PO SCH ×2 (12:11→20:57)
[2023-05-22] MEDS: SENNOSIDES 8.6 MG (SENOKOT) TAB PO SCH ×2 (12:11→20:57)
[2023-05-22] MEDS ORDERED: LIRA0.6P SQ (13:19)
[2023-05-22] MEDS ORDERED: TMSL.4C PO (13:19)
[2023-05-22] MEDS ORDERED: OMEP20CA18 PO (13:19)
[2023-05-22] MEDS ORDERED: ROSU10TA28 PO (13:19)
[2023-05-22] MEDS ORDERED: SAW1CAPS8 PO (13:19)
[2023-05-22] MEDS ORDERED: PROB500T8 PO (13:19)
[2023-05-22] MEDS ORDERED: DILT-107 PO (13:19)
[2023-05-22] MEDS ORDERED: GABA-486 PO ×2 (13:19)
[2023-05-22] MEDS ORDERED: FINA5TAB6 PO (13:19)
[2023-05-22] MEDS ORDERED: RIVA20TA PO (13:19)
[2023-05-22] MEDS ORDERED: METF-478 PO (13:19)
[2023-05-22 14:15] VITALS: BP 139/73
[2023-05-22] MEDS ORDERED: cefTRIAXone IV/IM 1,000 MG in NS (IVPB) 50 ML IV SCH (15:00)
[2023-05-22 17:00] VITALS: BP 163/91
[2023-05-22] MEDS: RIVAROXABAN 15 MG TABLET (XARELTO) PO SCH (17:07)
[2023-05-22 19:34] VITALS: BP 152/85
[2023-05-23] VITALS (9 sets, daily range): BP systolic 135–174; BP diastolic 83–98
[2023-05-23] MEDS: NS IV 1000 ML 1,000 ML IV SCH (05:07)
[2023-05-23 05:43] LABS: HEMOGLOBIN 10.3 g/dL (13.3-17.7); MEAN CORPUSCULAR VOLUME 80 fL (80-99)
[2023-05-23 05:45] LABS: BASOPHILS % (AUTO) 0 % (0-10); EOSINOPHILS % (AUTO) 0 % (0-10); HEMATOCRIT 32 % (40-54); LYMPHOCYTES # (AUTO) 0.6 10^3/uL (1.0-4.0); LYMPHOCYTES % (AUTO) 11 % (12-44); MEAN CORPUSCULAR HEMOGLOBIN 25 pg (25-34); MEAN CORPUSCULAR HGB CONC 32 g/dL (32-36); MEAN PLATELET VOLUME 11.7 fL (9.0-12.2); MONOCYTES # (AUTO) 0.3 10^3/uL (0.0-1.0); MONOCYTES % (AUTO) 5 % (0-12); NEUTROPHILS # (AUTO) 4.2 10^3/uL (1.8-7.8); NEUTROPHILS % (AUTO) 81 % (42-75); PLATELET COUNT 95 10^3/uL (130-400); WHITE BLOOD COUNT 5.2 10^3/uL (4.3-11.0)
[2023-05-23 06:11] LABS: ALBUMIN 3.4 GM/DL (3.2-4.5); CALCIUM 8.5 MG/DL (8.5-10.1); CREATININE SERUM 1.15 MG/DL (0.60-1.30); TOTAL PROTEIN 6.2 GM/DL (6.4-8.2)
[2023-05-23] MEDS ORDERED: amLODIPine 5 MG (NORVASC) TAB PO ONE (08:15)
[2023-05-23] MEDS: DOCUSATE SODIUM 100 MG (COLACE) CAP PO SCH ×2 (08:20→20:24)
[2023-05-23] MEDS: SENNOSIDES 8.6 MG (SENOKOT) TAB PO SCH ×2 (08:21→20:24)
[2023-05-23] MEDS: AMPICILLIN/SULBACTAM 3 GM/NS 100 ML IVPB IV SCH ×6 (11:08→23:21)
--- NOTE | 2023-05-23 12:01 | Progress Note - Hospitalist ---
Subjective HPI/CC On Admission Date Seen by Provider: May 23, 2023 Time Seen by Provider: 11:00 Everett Jung is an 78yo M with past medical history of atrial fibrillation on anticoagulation, BPH, and diabetes mellitus who presented to the ED on 05/21 with complaints of shaking that began mid day. He reported some dysuria for the p revious few days. He denies any recent sick contacts. Denies feeling feverish at home but did not take his temperature. He has never had these types of symptoms before. Denies any pain but does report some discomfort when urinating that has improved since admission. In the ED he was found be tachycardic with a slight fever of 101. WBC was normal but lactic acid was significantly elevated at 4.9. His UA was positive for leukocyte esterase, RBCs, WBCs, and bacteria. He was started on ceftriaxone with cultures pending. CT chest ab pelv revealed likely extensive metastatic process. There is a large mass in the prostate extending to bladder and contacting sigmoid colon. Enlarged R pelvic lymph nodes. 2cm L renal mass, bilateral thyroid nodules consistent with mets. He also has 2 nodules in his L lung. ER physician discussed these findings with the patient and his sister. He was admitted for further management of his urosepsis. On exam today he reports feeling much better. Denies fever/chills. Says dysuria is somewhat improved. Still having some urinary urgency. Denies suprapubic pain. He also denies chest pain, shortness of breath, palpitations, N/V/D. Patient is requesting to visit with Dr. Rodriguez due to family recommendations. Subjective/Events-last exam No major issues Bacteremia of Enterococcus IV abx adjusted considering Cx No falls PT ordered Lives alone Labs reviewed Review of Systems General: Fatigue, Malaise Pulmonary: Dyspnea Focused Exam Lactate Level 05/21/23 17:20: Lactic Acid Level 3.19*H 05/21/23 19:43: Lactic Acid Level 3.45*H 05/21/23 21:47: Lactic Acid Level 4.46*H Time of Focused Exam: 15:30 Objective Exam Vital Signs Vital Signs Date Time Temp Pulse Resp B/P (MAP) Pulse Ox O2 Delivery O2 Flow Rate FiO2 05/23/23 21:00 108 145/83 (103) Room Air 05/23/23 20:11 37.8 18 93 05/21/23 18:53 21 Capillary Refill : Less Than 3 Seconds General Appearance: No Apparent Distress, WD/WN, Chronically ill Respiratory: Lungs Clear, Normal Breath Sounds Cardiovascular: Regular Rate, Rhythm Neurologic/Psychiatric: Alert, Oriented x3 Results/Procedures Lab Laboratory Tests 05/23/23 05:27 Patient resulted labs reviewed. Imaging: Reviewed Imaging Films, Reviewed Imaging Report Assessment/Plan Assessment and Plan Assess & Plan/Chief Complaint UTI Sepsis Lactic acidosis UA positive for LE, RBCs, WBCs, and bacteria Urine culture Enterococcus Blood culture Enterococcus Sepsis with tachycardia, lactic acidosis, tachypnea, and probable source of infection Change ceftriaxone 1000mg q24hr to Vanc DC IV fluids continue monitoring lactic acid TeleICU consulted appreciate recs Probable malignancy with mets CT very suspicious for malignancy Will work on setting up close outpatient follow up with Dr Rodriguez, Chris/Onc after DC Patient aware of his CT finding per ED provider Prostatic mass could be predisposing him to UTI due to urinary stasis/ retention Chronic atrial fibrillation on anticoagulation xarelto 15mg daily continue telemetry Anemia Hgb 9.6 this morning down from 11.5 MCV low normal at 80 Likely related to chronic disease/ malignancy transfuse if less than 7 Monitor H/H daily Elevated INR 3.6 no signs of bleed, hemodynamically stable continue to monitor Diet- regular DVT ppx- anticoagulated with xarelto Code- full ROXY NORWOOD DO May 23, 2023 12:01
[2023-05-23] MEDS: RIVAROXABAN 15 MG TABLET (XARELTO) PO SCH (18:07)
[2023-05-24 03:07] VITALS: BP 159/97
[2023-05-24] MEDS: AMPICILLIN/SULBACTAM 3 GM/NS 100 ML IVPB IV SCH ×8 (04:39→23:12)
[2023-05-24 06:10] LABS: BASOPHILS % (AUTO) 0 % (0-10); EOSINOPHILS # (AUTO) 0.1 10^3/uL (0.0-0.3); EOSINOPHILS % (AUTO) 1 % (0-10); HEMATOCRIT 32 % (40-54); HEMOGLOBIN 10.1 g/dL (13.3-17.7); LYMPHOCYTES # (AUTO) 0.7 10^3/uL (1.0-4.0); LYMPHOCYTES % (AUTO) 15 % (12-44); MEAN CORPUSCULAR HEMOGLOBIN 25 pg (25-34); MEAN CORPUSCULAR HGB CONC 32 g/dL (32-36); MEAN CORPUSCULAR VOLUME 79 fL (80-99); MEAN PLATELET VOLUME 11.9 fL (9.0-12.2); MONOCYTES # (AUTO) 0.5 10^3/uL (0.0-1.0); MONOCYTES % (AUTO) 10 % (0-12); NEUTROPHILS # (AUTO) 3.6 10^3/uL (1.8-7.8); NEUTROPHILS % (AUTO) 74 % (42-75); PLATELET COUNT 107 10^3/uL (130-400); WHITE BLOOD COUNT 4.8 10^3/uL (4.3-11.0)
[2023-05-24 06:24] LABS: ALBUMIN 3.4 GM/DL (3.2-4.5); BILIRUBIN,TOTAL 1.3 MG/DL (0.1-1.0); CALCIUM 8.8 MG/DL (8.5-10.1); MAGNESIUM 1.6 MG/DL (1.6-2.4); POTASSIUM 3.8 MMOL/L (3.6-5.0); TOTAL PROTEIN 6.4 GM/DL (6.4-8.2)
[2023-05-24 07:21] VITALS: BP 152/84
[2023-05-24] MEDS: SENNOSIDES 8.6 MG (SENOKOT) TAB PO SCH ×2 (08:07→21:23)
[2023-05-24] MEDS: amLODIPine 5 MG (NORVASC) TAB PO SCH (08:07)
[2023-05-24] MEDS: DOCUSATE SODIUM 100 MG (COLACE) CAP PO SCH ×2 (08:07→21:23)
--- NOTE | 2023-05-24 10:08 | Progress Note - Hospitalist ---
Subjective HPI/CC On Admission Date Seen by Provider: May 24, 2023 Time Seen by Provider: 09:30 Everett Jung is an 78yo M with past medical history of atrial fibrillation on anticoagulation, BPH, and diabetes mellitus who presented to the ED on 05/21 with complaints of shaking that began mid day. He reported some dysuria for the p revious few days. He denies any recent sick contacts. Denies feeling feverish at home but did not take his temperature. He has never had these types of symptoms before. Denies any pain but does report some discomfort when urinating that has improved since admission. In the ED he was found be tachycardic with a slight fever of 101. WBC was normal but lactic acid was significantly elevated at 4.9. His UA was positive for leukocyte esterase, RBCs, WBCs, and bacteria. He was started on ceftriaxone with cultures pending. CT chest ab pelv revealed likely extensive metastatic process. There is a large mass in the prostate extending to bladder and contacting sigmoid colon. Enlarged R pelvic lymph nodes. 2cm L renal mass, bilateral thyroid nodules consistent with mets. He also has 2 nodules in his L lung. ER physician discussed these findings with the patient and his sister. He was admitted for further management of his urosepsis. On exam today he reports feeling much better. Denies fever/chills. Says dysuria is somewhat improved. Still having some urinary urgency. Denies suprapubic pain. He also denies chest pain, shortness of breath, palpitations, N/V/D. Patient is requesting to visit with Dr. Rodriguez due to family recommendations. Subjective/Events-last exam Patient reports he is feeling better and he would like to go home. He denies dysuria pelvic pain abdominal pain or any bone related pain. He denies any recurrence of rigors or flank pain. Focused Exam Lactate Level 05/21/23 17:20: Lactic Acid Level 3.19*H 05/21/23 19:43: Lactic Acid Level 3.45*H 05/21/23 21:47: Lactic Acid Level 4.46*H Time of Focused Exam: 15:30 Objective Exam Vital Signs Vital Signs Date Time Temp Pulse Resp B/P (MAP) Pulse Ox O2 Delivery O2 Flow Rate FiO2 05/24/23 07:21 36.7 98 18 152/84 (106) 100 Room Air 05/21/23 18:53 21 Capillary Refill : Less Than 3 Seconds General Appearance: No Apparent Distress Respiratory: Chest Non Tender, Lungs Clear, Normal Breath Sounds, No Accessory Muscle Use, No Respiratory Distress Cardiovascular: No Gallop, No JVD, No Murmur, Irregularly Irregular Gastrointestinal: Normal Bowel Sounds, No Organomegaly, No Pulsatile Mass, Non Tender, Soft Results/Procedures Lab Laboratory Tests 05/24/23 05:20 Patient resulted labs reviewed. Imaging: Reviewed Imaging Films, Reviewed Imaging Report Assessment/Plan Assessment and Plan Assess & Plan/Chief Complaint UTI Sepsis Lactic acidosis UA positive for LE, RBCs, WBCs, and bacteria Urine culture Enterococcus Blood culture Enterococcus Sepsis with tachycardia, lactic acidosis, tachypnea, and probable source of infection Change ceftriaxone 1000mg q24hr to Vanc DC IV fluids continue monitoring lactic acid TeleICU consulted appreciate recs 05/24: Sepsis resolved did discuss considering Enterococcus sepsis due to UTI and likely widely metastatic prostate cancer recommendation for at least another day of IV antibiotics and need for follow-up with oncology for which the patient would like referral to Dr. Bradshaw as an outpatient. The patient is responding to ampicillin-sulbactam with low risk for VRE continue we will obtain a PSA. Probable malignancy with mets CT very suspicious for malignancy Will work on setting up close outpatient follow up with Dr Rodriguez, Chris/Onc after DC Patient aware of his CT finding per ED provider Prostatic mass could be predisposing him to UTI due to urinary stasis/ retention Chronic atrial fibrillation on anticoagulation xarelto 15mg daily continue telemetry Anemia Hgb 9.6 this morning down from 11.5 MCV low normal at 80 Likely related to chronic disease/ malignancy transfuse if less than 7 Monitor H/H daily HUMBERTO ALLRED MD May 24, 2023 10:08
[2023-05-24 11:22] VITALS: BP 121/84
[2023-05-24 16:37] VITALS: BP 121/71
[2023-05-24] MEDS: RIVAROXABAN 15 MG TABLET (XARELTO) PO SCH (17:20)
[2023-05-24 19:33] VITALS: BP 128/87
[2023-05-24 23:15] VITALS: BP 188/94
[2023-05-25 04:02] VITALS: BP 138/84
[2023-05-25] MEDS: AMPICILLIN/SULBACTAM 3 GM/NS 100 ML IVPB IV SCH ×4 (04:03→12:59)
[2023-05-25 05:51] LABS: BASOPHILS % (AUTO) 1 % (0-10); MEAN CORPUSCULAR HEMOGLOBIN 25 pg (25-34)
[2023-05-25 05:53] LABS: EOSINOPHILS # (AUTO) 0.1 10^3/uL (0.0-0.3); EOSINOPHILS % (AUTO) 2 % (0-10); HEMATOCRIT 31 % (40-54); LYMPHOCYTES # (AUTO) 0.8 10^3/uL (1.0-4.0); LYMPHOCYTES % (AUTO) 18 % (12-44); MEAN CORPUSCULAR HGB CONC 32 g/dL (32-36); MEAN CORPUSCULAR VOLUME 79 fL (80-99); MEAN PLATELET VOLUME 11.8 fL (9.0-12.2); MONOCYTES # (AUTO) 0.4 10^3/uL (0.0-1.0); MONOCYTES % (AUTO) 10 % (0-12); NEUTROPHILS % (AUTO) 69 % (42-75); PLATELET COUNT 104 10^3/uL (130-400); WHITE BLOOD COUNT 4.4 10^3/uL (4.3-11.0)
[2023-05-25 06:08] LABS: ALBUMIN 3.2 GM/DL (3.2-4.5)
[2023-05-25 06:09] LABS: POTASSIUM 3.5 MMOL/L (3.6-5.0)
[2023-05-25 06:10] LABS: CALCIUM 8.6 MG/DL (8.5-10.1)
[2023-05-25 06:11] LABS: TOTAL PROTEIN 6.1 GM/DL (6.4-8.2)
[2023-05-25 06:13] LABS: BILIRUBIN,TOTAL 0.9 MG/DL (0.1-1.0)
[2023-05-25 06:15] LABS: CREATININE SERUM 0.88 MG/DL (0.60-1.30)
[2023-05-25 06:18] LABS: MAGNESIUM 1.6 MG/DL (1.6-2.4)
[2023-05-25 07:20] VITALS: BP 140/81
[2023-05-25] MEDS: DOCUSATE SODIUM 100 MG (COLACE) CAP PO SCH (09:07)
[2023-05-25] MEDS: amLODIPine 5 MG (NORVASC) TAB PO SCH (09:07)
[2023-05-25] MEDS: SENNOSIDES 8.6 MG (SENOKOT) TAB PO SCH (09:08)
[2023-05-25 11:20] VITALS: BP 137/77
[2023-05-25] MEDS ORDERED: AMOX500C2 PO (12:53)
--- NOTE | 2023-05-25 12:59 | Discharge Summary ---
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 Primary [facility] Discharge Summary Discharge Physical Exam Allergies: Coded Allergies: No Known Drug Allergies (Unverified , 05/21/23) Vitals & I&Os Vital Signs Date Time Temp Pulse Resp B/P (MAP) Pulse Ox O2 Delivery O2 Flow Rate FiO2 05/25/23 11:20 36.4 93 18 137/77 (97) 97 Room Air 05/21/23 18:53 21 General Appearance: No Apparent Distress Respiratory: Chest Non Tender, Lungs Clear, Normal Breath Sounds, No Accessory Muscle Use, No Respiratory Distress Cardiovascular: Regular Rate, Rhythm, No Edema, No Gallop, No JVD, No Murmur, Normal Peripheral Pulses Gastrointestinal: Normal Bowel Sounds, No Organomegaly, No Pulsatile Mass, Non Tender, Soft Hospital Course Everett Jung is an 78yo M with past medical history of atrial fibrillation on anticoagulation, BPH, and diabetes mellitus who presented to the ED on 05/21 with complaints of shaking that began mid day. He reported some dysuria for the previous few days. He denies any recent sick contacts. Denies feeling feverish at home but did not take his temperature. He has never had these types of symptoms before. Denies any pain but does report some discomfort when urinating that has improved since admission. In the ED he was found be tachycardic with a slight fever of 101. WBC was normal but lactic acid was significantly elevated at 4.9. His UA was positive for leukocyte esterase, RBCs, WBCs, and bacteria. He was started on ceftriaxone with cultures pending. CT chest ab pelv revealed likely extensive metastatic process. There is a large mass in the prostate extending to bladder and contacting sigmoid colon. Enlarged R pelvic lymph nodes. 2cm L renal mass, bilateral thyroid nodules consistent with mets. He also has 2 nodules in his L lung. ER physician discussed these findings with the patient and his sister. He was admitted for further management of his urosepsis.Patient's urine culture grew out Enterococcus faecalis sensitive to penicillin. He had rather quick defervescent's of fever with reported no difficulty in urination. Unfortunately CT scan revealed a large mass in the location of the prostate encroaching on the bladder without evidence for hydronephrosis and again no reported urinary difficulty according to the patient. He had multiple pulmonary nodules suspicious for metastatic disease which would be unusual for prostate cancer With some pelvic lymphadenopathy likely metastatic as well. Discussed the case with Dr. Sanchez who is expecting to see the patient in the near future. A PSA was obtained and pending at this time. Patient was instructed to call Dr. Sanchez office Friday to obtain follow-up appointment will continue his home medications plus amoxicillin 500 mg 3 times daily for another 5 days.. Labs (last 24 hrs) Laboratory Tests 05/25/23 05:20: White Blood Count 4.4, Red Blood Count 3.98L, Hemoglobin 10.0L, Hematocrit 31L, Mean Corpuscular Volume 79L, Mean Corpuscular Hemoglobin 25, Mean Corpuscular Hemoglobin Concent 32, Red Cell Distribution Width 18.9H, Platelet Count 104L, Mean Platelet Volume 11.8, Immature Granulocyte % (Auto) 1, Neutrophils (%) (Auto) 69, Lymphocytes (%) (Auto) 18, Monocytes (%) (Auto) 10, Eosinophils (%) (Auto) 2, Basophils (%) (Auto) 1, Neutrophils # (Auto) 3.0, Lymphocytes # (Auto) 0.8L, Monocytes # (Auto) 0.4, Eosinophils # (Auto) 0.1, Basophils # (Auto) 0.0, Immature Granulocyte # (Auto) 0.0, Percent Immature Platelet Fraction 7.8H, Sodium Level 143, Potassium Level 3.5L, Chloride Level 110H, Carbon Dioxide Level 22, Anion Gap 11, Blood Urea Nitrogen 16, Creatinine 0.88, Estimat Glomerular Filtration Rate 87, BUN/Creatinine Ratio 18, Glucose Level 111H, Calcium Level 8.6, Corrected Calcium 9.2, Magnesium Level 1.6, Total Bilirubin 0.9, Aspartate Amino Transf (AST/SGOT) 35H, Alanine Aminotransferase (ALT/SGPT) 34, Alkaline Phosphatase 95, Total Protein 6.1L, Albumin 3.2 Microbiology 05/21/23 MRSA Screen - Final, Complete MRSA not isolated 05/21/23 Urine Culture - Preliminary, Resulted Enterococcus faecalis 05/21/23 Blood Culture - Final, Complete Enterococcus faecalis Patient resulted labs reviewed. Pending Labs Laboratory Tests 05/25/23 05:20: White Blood Count 4.4, Red Blood Count 3.98, Hemoglobin 10.0, Hematocrit 31, Mean Corpuscular Volume 79, Mean Corpuscular Hemoglobin 25, Mean Corpuscular Hemoglobin Concent 32, Red Cell Distribution Width 18.9, Platelet Count 104, Mean Platelet Volume 11.8, Immature Granulocyte % (Auto) 1, Neutrophils (%) (Auto) 69, Lymphocytes (%) (Auto) 18, Monocytes (%) (Auto) 10, Eosinophils (%) (Auto) 2, Basophils (%) (Auto) 1, Neutrophils # (Auto) 3.0, Lymphocytes # (Auto) 0.8, Monocytes # (Auto) 0.4, Eosinophils # (Auto) 0.1, Basophils # (Auto) 0.0, Immature Granulocyte # (Auto) 0.0, Percent Immature Platelet Fraction 7.8, Sodium Level 143, Potassium Level 3.5, Chloride Level 110, Carbon Dioxide Level 22, Anion Gap 11, Blood Urea Nitrogen 16, Creatinine 0.88, Estimat Glomerular Filtration Rate 87, BUN/Creatinine Ratio 18, Glucose Level 111, Calcium Level 8.6, Corrected Calcium 9.2, Magnesium Level 1.6, Total Bilirubin 0.9, Aspartate Amino Transf (AST/SGOT) 35, Alanine Aminotransferase (ALT/SGPT) 34, Alkaline Phosphatase 95, Total Protein 6.1, Albumin 3.2 Imaging: Reviewed Imaging Films, Reviewed Imaging Report Discussion & Recommendations Discharge Planning: >30 minutes discharge planning Discharge Home Medications: Active Scripts Active Amoxicillin 500 Mg Capsule 500 Mg PO TID 5 Days Reported Saw [place] 450 mg Capsule (Saw [place] Fruit/Zinc Picoli) 450 Mg-15 Mg Capsule 2 Each PO HS Metformin HCl ER (Metformin HCl) 500 Mg Tab.er.24 500 Mg PO BID Diltiazem ER (Diltiazem HCl) 180 Mg Cap.er.deg 180 Mg PO DAILY Omeprazole 20 Mg Capsule.dr 20 Mg PO DAILY Probenecid 500 Mg Tablet 250 Mg PO BID TAKES OF A 250MG TAB Rosuvastatin Calcium 10 Mg Tablet 10 Mg PO HS Finasteride 5 Mg Tablet 5 Mg PO DAILY Flomax (Tamsulosin HCl) 0.4 Mg Cap 0.4 Mg PO HS Xarelto (Rivaroxaban) 20 Mg Tablet 20 Mg PO 1800 Gabapentin 100 Mg Capsule 200 Mg PO HS TAKES 2 (100MG) CAPS Gabapentin 100 Mg Capsule 100 Mg PO DAILY Victoza 2-Jer (Liraglutide) 0.6 Mg/0.1 Ml (18 Mg/3 Ml) Pen.injctr 1.8 Mg SQ DAILY Instructions to patient/family Please see electronic discharge instructions given to patient. Copy Copies To 2: [facility]/HUMBERTO SIMPSON MD May 25, 2023 12:59
== END 2023-05-25 14:22 | disposition home or self-care (01) | DRG 872 ==
LOC: EDUNIT# 13:23 → ER 13:24 → ICU 18:24 → OBSVTOIN 05-22 09:43 → 4TH 05-22 14:10
PROVIDERS: ADMIT Internal Medicine; ATTEND Internal Medicine
DX: A41.81 Sepsis due to Enterococcus (principal); N39.0 Urinary tract infection, site not specified; E87.20 Acidosis, unspecified; C78.5 Secondary malignant neoplasm of large intestine and rectum; C77.5 Secondary and unspecified malignant neoplasm of intrapelvic lymph nodes; C78.02 Secondary malignant neoplasm of left lung; C79.11 Secondary malignant neoplasm of bladder; C79.02 Secondary malignant neoplasm of left kidney and renal pelvis; C79.89 Secondary malignant neoplasm of other specified sites; I48.20 Chronic atrial fibrillation, unspecified; C61 Malignant neoplasm of prostate; N40.1 Benign prostatic hyperplasia with lower urinary tract symptoms; R33.8 Other retention of urine; R30.0 Dysuria; E11.9 Type 2 diabetes mellitus without complications; D64.9 Anemia, unspecified; Z79.01 Long term (current) use of anticoagulants; Z79.85 Long-term (current) use of injectable non-insulin antidiabetic drugs; Z79.84 Long term (current) use of oral hypoglycemic drugs; Z96.612 Presence of left artificial shoulder joint
CPT/HCPCS: 36415; 71045; 71250; 74176; 80053; 81000; 83605; 83735; 84100; 84153; 85007; 85025; 85027; 85610; 85730; 87040; 87077; 87081; 87088; 87186; G0378

== ENCOUNTER 2023-08-12 05:30 | Outpatient (CLI) | payer MEDICARE ==
[~2023-08-12] VITALS: Ht 165.1 cm; Wt 80.6 kg
[~2023-08-12 05:30] MED LIST: AMOX500C2 PO; DILT-107 PO; FINA5TAB6 PO; GABA-486 PO; LIRA0.6P SQ; METF-478 PO; OMEP20CA18 PO; PROB500T8 PO; RIVA20TA PO; ROSU10TA28 PO; SAW1CAPS8 PO; TMSL.4C PO
== END 2023-08-12 18:10 | disposition home or self-care (01) ==
LOC: PREOP 05:30
PROVIDERS: ATTEND Surgery
DX: Z01.818 Encounter for other preprocedural examination (principal)

== ENCOUNTER 2023-08-14 10:02 | Day surgery (SDC) | payer MEDICARE ==
[~2023-08-14] VITALS: Ht 165.1 cm; Wt 80.6 kg
[2023-08-14] VITALS (8 sets, daily range): BP systolic 95–140; BP diastolic 62–85
[2023-08-14] MEDS ORDERED: ceFAZolin INJECTION 2,000 MG in NS (IVPB) 50 ML 50 ML IV ONE (10:30)
[2023-08-14] MEDS ORDERED: LACTATED RINGERS 1,000 ML 1,000 ML IV PRN (10:30)
[2023-08-14] MEDS ORDERED: 0.9% SODIUM CHLORIDE PF INJ 20 ML VIAL ONE (10:56)
[2023-08-14] MEDS ORDERED: LIDOCAINE/EPI 1%-1:200,000 (XYLOCAINE) 30 ML VIAL ONE (10:57)
[2023-08-14] MEDS ORDERED: HEParin (CENTRAL IV FLUSH) 500 UNIT/5 ML SYR ONE (10:57)
--- NOTE | 2023-08-14 12:37 | Progress Note-Pre Operative ---
Pre-Operative Progress Note Date H&P Reviewed: Aug 14, 2023 Time H&P Reviewed: 12:37 History & Physical: H&P Reviewed, Patient Examed, No changes noted Pre-Operative Diagnosis: LUNG CANCER MARIA DEL ROSARIO SMITH DO Aug 14, 2023 12:37
--- NOTE | 2023-08-14 14:59 | Anesthesia-General Post-Op ---
MAC Patient Condition Mental Status/LOC: Same as Preop Cardiovascular: Satisfactory Nausea/Vomiting: Absent Respiratory: Satisfactory Pain: Controlled Complications: Absent Post Op Complications Complications None Follow Up Care/Instructions Patient Instructions None needed. Anesthesiology Discharge Order Discharge Order Patient is doing well, no complaints, stable vital signs, no apparent adverse anesthesia problems. No complications reported per nursing. SAROJ LAY CRNA Aug 14, 2023 14:59
[2023-08-14] MEDS ORDERED: ONDANSETRON INJECTION 4 MG/2 ML (SDV) IVP PRN (15:00)
[2023-08-14] MEDS ORDERED: MEPERIDINE INJ 50 MG/ML VIAL IVP ONE (15:00)
[2023-08-14] MEDS ORDERED: morphine INJ 10 MG/ML 1ML (SYR OR VIAL) IVP ONE (15:00)
[2023-08-14] MEDS ORDERED: ACHD5005 PO (15:01)
--- NOTE | 2023-08-14 15:03 | Discharge Inst-Simple/Standard ---
Discharge Inst-Standard Discharge Medications New, Converted or Re-Newed RX: Transmitted to Pharmacy Patient Instructions/Follow Up Plan of Care/Instructions/FU: 2 weeks mayela Activity as Tolerated: No Discharge Diet: Regular Diet Other Inst to Patient Follow up Appt: Make appointment for 2 week. Instructions: No lifting greater than 10 pounds. No strenuous activity. May shower in 24 hours, no tub bath or soaking. Use incentive spirometer at home as directed. No Smoking Skin/Wound Care: You have special glue over your incision that will fall off on it's own. Ice pack on 15 min and off 30 min and repeat for first 48 hrs. This reduces swelling and discomfort. Symptoms to Report: Appetite Changes, Extremity Discoloration, Numbness/Tingling, Swelling Increased, Bleeding Excessive, Eyesight Changes, Pain Increased, Urine Color Change, Constipation(Persistent), Fever over 101 degree F, Pain/Pressure in chest, Urinating Difficulty, Cough Up/Vomit Blood, Heart Beat Irreg/Pounding, Pain/Pressure in jaw, Vaginal Bleeding Increase, Cramps in feet or legs, Lightheadedness, Pain/Pressure in shoulder, Diarrhea(Persistent), Memory Changes Suddenly, Questions/Concerns, Weight gain consecutive days, Dizziness/Fainting, Nausea/Vomiting, Shortness of Breath, Weight gain over 2 pounds If questions or concerns contact your physician Or seek help at emergency department. MARIA DEL ROSARIO SMITH DO Aug 14, 2023 15:03
--- NOTE | 2023-08-14 15:05 | Progress Note-Post Operative ---
Post-Operative Progess Note Surgeon (s)/Bridge Repairer (s) Surgeon MARIA DEL ROSARIO SMITH DO Bridge Repairer: na Pre-Operative Diagnosis LUNG CANCER Post-Operative Diagnosis same Procedure & Operative Findings Date of Procedure 08/14/23 Procedure Performed/Findings PROCEDURE: Right internal jugular port placement using ultrasound guidance. COMPLICATIONS: None. INDICATIONS: The patient is a 78 year old male with lung cancer. Patient understands the risks and benefits of port placement and wished to proceed with the procedure. Consent was signed on the chart. PROCEDURE: The patient was taken to the operating suite, was prepped and draped in the sterile fashion. A surgical pause was performed. Ultrasound was used to locate the internal jugular vein. Once located anesthetic was infiltrated above it. Using micro-access kit, the right internal vein was accessed. Dark nonpulsatile blood was withdrawn. The wire was inserted. Fluoroscopy assured proper placement. The needle was removed. The micro-access dilator was advanced over the wire and the wire was removed. The regular wire was inserted and fluoroscopy assured proper placement. The wire was then secured. Local anesthetic was used to anesthetize from the neck for tunneling down to the right chest and for pocket creation. A 15 blade scalpel was used to make an incision over the right chest. Cautery was used to dissect down to the pectoral fascia. A pocket was created with blunt dissection. The dilator sheath was then advanced over the wire under fluoroscopy and the dilator and wire were removed. The [place] catheter was inserted through the sheath and the sheath was then removed. The [place] wire was removed. The catheter was then tunneled to the right chest pocket. Fluoroscopy was used to cut to length and this was then attached to the port which was then placed within the pocket. The port was then accessed without difficulty. It was then flushed with saline and then heparin. The subcutaneous tissues were then reapproximated using 3-0 Vicryl. The areas were then washed and dried. Skin Affix was placed over incision. The insertion point of the neck Skin Affix was placed over the incision. The patient tolerated the procedure well without complication and was taken to recovery room in stable condition. Chest x-ray is pending. Anesthesia Type mac c local Estimated Blood Loss Estimated blood loss (mL): minimal Specimens/Packing Specimens Removed MARIA DEL ROSARIO Preciado DO Aug 14, 2023 15:05
--- NOTE | 2023-08-14 15:33 | Diagnostic Imaging Report ---
EXAMINATION: Chest 1 view HISTORY: Port placement COMPARISON: 05/22/2023 FINDINGS: Right-sided port catheter is present. There are multiple bilateral pulmonary nodules. No pleural effusion or pneumothorax. Heart size is normal. IMPRESSION: 1. Unchanged bilateral pulmonary nodules. Dictated by: Dictated on workstation # [id number]
--- NOTE | 2023-08-14 16:11 | Diagnostic Imaging Report ---
INDICATION: Port-A-Cath placement Intraoperative fluoroscopy view obtained with the portable intensifier in surgery. Single view obtained, 14.4 seconds of fluoroscopy time was used. 1.7 mg of exposure Single view demonstrate Port-A-Cath over the right chest with catheter entering the right internal jugular vein and catheter tip overlying the mid SVC. IMPRESSION: Intraoperative fluoroscopy view demonstrates Port-A-Cath placement as above. Dictated by: Dictated on workstation # [id number]
== END 2023-08-14 16:20 | disposition home or self-care (01) ==
LOC: SDC 10:02
PROVIDERS: ATTEND Surgery
DX: C34.90 Malignant neoplasm of unspecified part of unspecified bronchus or lung (principal); I87.2 Venous insufficiency (chronic) (peripheral); E11.9 Type 2 diabetes mellitus without complications; Z79.84 Long term (current) use of oral hypoglycemic drugs; Z79.85 Long-term (current) use of injectable non-insulin antidiabetic drugs; Z87.891 Personal history of nicotine dependence
CPT/HCPCS: 36561; 71045; 76000; 82947; 87081; C1788

== ENCOUNTER 2023-08-16 22:56 | Emergency (ER) | payer MEDICARE ==
[~2023-08-16] VITALS: Ht 167.7 cm; Wt 80.5 kg
[~2023-08-16 22:56] MED LIST changes: +ACHD5005 PO
[2023-08-16] MEDS ORDERED: NS IV 500 ML 500 ML IV ONE (23:45)
[2023-08-17 00:03] LABS: BASOPHILS % (AUTO) 0 % (0-10); EOSINOPHILS % (AUTO) 0 % (0-10); HEMATOCRIT 27 % (40-54); HEMOGLOBIN 8.9 g/dL (13.3-17.7); LYMPHOCYTES # (AUTO) 0.3 10^3/uL (1.0-4.0); LYMPHOCYTES % (AUTO) 3 % (12-44); MEAN CORPUSCULAR HEMOGLOBIN 25 pg (25-34); MEAN CORPUSCULAR HGB CONC 33 g/dL (32-36); MEAN CORPUSCULAR VOLUME 75 fL (80-99); MEAN PLATELET VOLUME 11.4 fL (9.0-12.2); MONOCYTES # (AUTO) 0.4 10^3/uL (0.0-1.0); MONOCYTES % (AUTO) 4 % (0-12); NEUTROPHILS % (AUTO) 91 % (42-75); PLATELET COUNT 219 10^3/uL (130-400); WHITE BLOOD COUNT 11.1 10^3/uL (4.3-11.0)
[2023-08-17 00:08] LABS: INR 1.3 (0.8-1.4); PROTHROMBIN TIME PATIENT 16.7 SEC (12.2-14.7)
[2023-08-17 00:31] LABS: BAND NEUTROPHILS 7 %; EOSINOPHILS % (MANUAL) 1 %; LYMPHOCYTES % (MANUAL) 3 %; NEUTROPHILS % (MANUAL) 85 %
[2023-08-17 00:32] LABS: ANISOCYTOSIS SLIGHT; ELLIPT/OVALOCYTES SLIGHT; MONOCYTES % (MANUAL) 1 %; MYELOCYTES % 1 %; REACTIVE LYMPHOCYTES 2 %
[2023-08-17 00:36] LABS: ALBUMIN 2.9 GM/DL (3.2-4.5)
[2023-08-17 00:37] LABS: CALCIUM 8.6 MG/DL (8.5-10.1)
[2023-08-17 00:39] LABS: TOTAL PROTEIN 6.5 GM/DL (6.4-8.2)
[2023-08-17 00:40] LABS: BILIRUBIN,TOTAL 0.6 MG/DL (0.1-1.0)
[2023-08-17 00:42] LABS: CREATININE SERUM 15.76 MG/DL (0.60-1.30)
[2023-08-17] MEDS ORDERED: LIDOCAINE UROJET 2% GEL 10 ML PKG ONE (00:59)
[2023-08-17] MEDS ORDERED: CALCIUM GLUCONATE 1GM IVPB 100 ML IV ONE ×2 (01:00)
[2023-08-17] MEDS ORDERED: LIDOCAINE UROJET 2% GEL 10 ML PKG TOP ONE (01:15)
[2023-08-17] MEDS ORDERED: inSUlin (REGULAR) HUMAN 1 UNIT/0.01 ML (CHARGE PER UNIT) IV STA ×2 (01:20→02:45)
[2023-08-17] MEDS ORDERED: CEFEPIME INJECTION 1,000 MG in NS (IVPB) 50 ML 50 ML IV ONE (01:30)
[2023-08-17] MEDS ORDERED: DEXTROSE 50% 50 ML (IMS) SYR IV ONE ×2 (01:30→02:45)
--- NOTE | 2023-08-17 01:36 | ED General ---
General Chief Complaint: General Problems/Pain Stated Complaint: GENERAL WEAKNESS Nursing Triage Note: PT PRESENTS TO ROOM #5 ACCOMPANIED BY CC EMS FROM HOME W/CC GENERALIZED WEAKNESS AND RECENT FALLS. 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 PT REPORTS HE WAS UNABLE TO GET BACK UP D/T WEAKNESS. DENIES INJURY. PT REPORTS HE IS DUE TO BEGIN CHEMOTHERAPY TX FOR PROSTATE CANCER. DENIES FEVER OR CHILLS. Source of Information: Patient, EMS Exam Limitations: No Limitations History of Present Illness Date Seen by Provider: Aug 16, 2023 Time Seen by Provider: 23:40 Initial Comments By EMS with report of weakness tonight. Apparently he became weak and had to lower himself to the floor. Denies injury with this. He was unable to get up due to the weakness. 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 Had port placed a few days ago. He is out of [place] and follows here with the cancer center. He did have his biopsies done at [facility] in [place]. Denies fever or chills but is quite weak and has some shortness of breath. He is incontinent of urine and wears an adult diaper. Denies nausea, vomiting or diarrhea. Denies chest pain. He is somewhat short of breath. Timing/Duration: 4-6 Hours, Getting Worse Severity: Moderate Modifying Factors: improves with Rest Associated Systoms: No Chest Pain, No Cough, No Fever/Chills, No [place] sea/Vomiting; Shortness of Air, Weakness Allergies and Home Medications Allergies Coded Allergies: No Known Drug Allergies (Unverified , 08/12/23) Patient Home Medication List Home Medication List Reviewed: Yes Diltiazem HCl (Diltiazem ER) 180 Mg Cap.er.deg, 180 MG PO DAILY, (Reported) Entered as Reported by: JONATHAN SEAMAN on 05/22/23 131 Finasteride (Finasteride) 5 Mg Tablet, 5 MG PO DAILY, (Reported) Entered as Reported by: JONATHAN SEAMAN on 05/22/23 1319 Gabapentin (Gabapentin) 100 Mg Capsule, 100 MG PO DAILY, (Reported) Entered as Reported by: JONATHAN SEAMAN on 05/22/23 131 Gabapentin (Gabapentin) 100 Mg Capsule, 200 MG PO HS, (Reported) Entered as Reported by: JONATHAN SEAMAN on 05/22/23 131 Hydrocodone/Acetaminophen (Hydrocodone-Acetamin 5-325 mg) 5 Mg-325 Mg Tablet, 1 EACH PO Q4H PRN for PAIN-MODERATE (5-7) Prescribed by: MARIA DEL ROSARIO SMITH on 08/14/23 1502 Liraglutide (Victoza 2-Jer) 0.6 Mg/0.1 Ml (18 Mg/3 Ml) Pen.injctr, 1.8 MG SQ DAILY, (Reported) Entered as Reported by: JONATHAN SEAMAN on 05/22/231318 Metformin HCl (Metformin HCl ER) 500 Mg Tab.er.24, 500 MG PO BID, (Reported) Entered as Reported by: JONATHAN SEAMAN on 05/22/231318 Omeprazole (Omeprazole) 20 Mg Capsule.dr, 20 MG PO DAILY, (Reported) Entered as Reported by: JONATHAN SEAMAN on 05/22/231318 Probenecid (Probenecid) 500 Mg Tablet, 250 MG PO BID, (Reported) Entered as Reported by: JONATHAN SEAMAN on 05/22/231318 Rivaroxaban (Xarelto) 20 Mg Tablet, 20 MG PO 1800, (Reported) Entered as Reported by: JONATHAN SEAMAN on 05/22/231318 Rosuvastatin Calcium (Rosuvastatin Calcium) 10 Mg Tablet, 10 MG PO HS, (Report ed) Entered as Reported by: JONATHAN SEAMAN on 05/22/231318 Tamsulosin HCl (Flomax) 0.4 Mg Cap, 0.4 MG PO HS, (Reported) Entered as Reported by: JONATHAN SEAMAN on 05/22/23 131 Discontinued Medications Amoxicillin (Amoxicillin) 500 Mg Capsule, 500 MG PO TID Discontinued Reason: No Longer Taking Prescribed by: HUMBERTO ALLRED on 05/25/23 1253 Saw [place] Fruit/Zinc Picoli (Saw [place] 450 mg Capsule) 450 Mg-15 Mg Cap ciara, 2 EACH PO HS, (Reported) Discontinued Reason: No Longer Taking Entered as Reported by: JONATHAN SEAMAN on 05/22/231318 Review of Systems Review of Systems Constitutional: see HPI; No fever; weakness EENTM: No nose congestion, No throat pain Respiratory: No cough; short of breath Cardiovascular: No chest pain, No edema Gastrointestinal: abdominal pain (Suprapubic); No nausea, No vomiting Genitourinary: decreased output Musculoskeletal: No back pain Skin: change in color (Near port Placement) Psychiatric/Neurological: No Symptoms Reported Hematologic/Lymphatic: No Symptoms Reported Past Kvwzqwv-Vwpxye-Uqloqm Hx Patient Social History Tobacco Use?: No Substance use?: No Alcohol Use?: No Pt feels they are or have been: No Immunizations Up To Date First/Initial COVID19 Vaccinat: YES Second COVID19 Vaccination Jj: YES Third COVID19 Vaccination Date: YES Seasonal Allergies Seasonal Allergies: No Past Medical History Surgery/Hospitalization HX: DIABETES, A-FIB, L SHOULDER REPLACEMENT Surgeries: Yes Adenoidectomy, Orthopedic, Tonsillectomy, Vasectomy Respiratory: Yes (LUNG CA) Sleep Apnea Currently Using CPAP: No Currently Using BIPAP: Yes Hypertension Neurological: No Sexually Transmitted Disease: No Genitourinary: Yes Benign Prostatic Hyperpl Gastrointestinal: Yes Gastroesophageal Reflux Arthritis Endocrine: Yes Diabetes, Non-Insulin dep HEENT: No Loss of Vision: Denies Hearing Impairment: Denies Cancer: Yes Lung Psychosocial: No Integumentary: No Blood Disorders: No Adverse Reaction/Blood Tranf: No Family Medical History Reviewed Nursing Family Hx No Pertinent Family Hx Physical Exam-Suspected Sepsis Physical Exam Vital Signs Vital Signs - First Documented 08/16/23 22:58 Temp 36.5 Pulse 91 Resp 17 B/P (MAP) 133/87 (102) Pulse Ox 96 O2 Delivery Room Air Capillary Refill : Less Than 3 Seconds Blood Pressure Mean: 102 Height, Weight, BMI Height: '" Weight: lbs. oz. kg; 28.00 BMI Method: General Appearance: No Apparent Distress, WD/WN HEENT: PERRL/EOMI, Pharynx Normal Neck: Non Tender, Supple Respiratory: Decreased Breath Sounds (Right lower lobe); No Wheezing Cardiovascular: No Murmur, Tachycardia Gastrointestinal: Soft, Other (Mild suprapubic tenderness) Back: Normal Inspection, No CVA Tenderness, No Vertebral Tenderness Extremity: Normal Range of Motion, Non Tender, Pedal Edema (Trace bilateral l ower extremities) Skin: normal color, warm/dry, ecchymosis (Right anterior chest wall) Focused Exam Lactate Level 08/16/23 23:05: Lactic Acid Level 2.39*H 08/17/23 01:40: Lactic Acid Level 1.40 Lactic Acid Level Laboratory Tests Test 08/17/23 01:40 Lactic Acid Level 1.40 MMOL/L (0.50-2.00) Progress/Results/Core Measures Suspected Sepsis SIRS Temperature: Pulse: 91 Respiratory Rate: 17 Laboratory Tests 08/16/23 23:05: White Blood Count 11.1H Blood Pressure 133 /87 Mean: 102 08/16/23 23:05: Lactic Acid Level 2.39*H 08/17/23 01:40: Lactic Acid Level 1.40 Laboratory Tests 08/16/23 23:05: INR Comment 1.3, Platelet Count 219 08/17/23 00:09: Creatinine 15.76H, Total Bilirubin 0.6 Results/Orders Lab Results Laboratory Tests Test 08/16/23 23:05 08/17/23 00:09 08/17/23 01:10 08/17/23 01:25 Range/Units White Blood Count 11.1 H 4.3-11.0 10^3/uL Red Blood Count 3.62 L 4.30-5.52 10^6/uL Hemoglobin 8.9 L 13.3-17.7 g/dL Hematocrit 27 L 40-54 % Mean Corpuscular Volume 75 L 80-99 fL Mean Corpuscular Hemoglobin 25 25-34 pg Mean Corpuscular Hemoglobin Concent 33 32-36 g/dL Red Cell Distribution Width 20.8 H 10.0-14.5 % Platelet Count 219 130-400 10^3/uL Mean Platelet Volume 11.4 9.0-12.2 fL Immature Granulocyte % (Auto) 2 % Neutrophils (%) (Auto) 91 H 42-75 % Lymphocytes (%) (Auto) 3 L 12-44 % Monocytes (%) (Auto) 4 0-12 % Eosinophils (%) (Auto) 0 0-10 % Basophils (%) (Auto) 0 0-10 % Neutrophils # (Auto) 10.0 H 1.8-7.8 10^3/uL Lymphocytes # (Auto) 0.3 L 1.0-4.0 10^3/uL Monocytes # (Auto) 0.4 0.0-1.0 10^3/uL Eosinophils # (Auto) 0.0 0.0-0.3 10^3/uL Basophils # (Auto) 0.0 0.0-0.1 10^3/uL Immature Granulocyte # (Auto) 0.3 H 0.0-0.1 10^3/uL Neutrophils % (Manual) 85 % Lymphocytes % (Manual) 3 % Monocytes % (Manual) 1 % Eosinophils % (Manual) 1 % Myelocytes % 1 % Band Neutrophils 7 % Reactive Lymphocytes 2 % Anisocytosis SLIGHT Elliptocytes SLIGHT Prothrombin Time 16.7 H 12.2-14.7 SEC INR Comment 1.3 0.8-1.4 Activated Partial Thromboplast Time 35 24-35 SEC Lactic Acid Level 2.39 *H 0.50-2.00 MMOL/L Sodium Level 132 L 135-145 MMOL/L Potassium Level 8.0 #*H 3.6-5.0 MMOL/L Chloride Level 98 98-107 MMOL/L Carbon Dioxide Level 12 L 21-32 MMOL/L Anion Gap 22 H 5-14 MMOL/L Blood Urea Nitrogen 118 *H 7-18 MG/DL Creatinine 15.76 H 0.60-1.30 MG/DL Estimat Glomerular Filtration Rate 3 BUN/Creatinine Ratio 7 Glucose Level 127 H 70-105 MG/DL Calcium Level 8.6 8.5-10.1 MG/DL Corrected Calcium 9.5 8.5-10.1 MG/DL Total Bilirubin 0.6 0.1-1.0 MG/DL Aspartate Amino Transf (AST/SGOT) 26 5-34 U/L Alanine Aminotransferase (ALT/SGPT) 14 0-55 U/L Alkaline Phosphatase 140 H 40-136 U/L Total Protein 6.5 6.4-8.2 GM/DL Albumin 2.9 L 3.2-4.5 GM/DL Urine Color YELLOW Urine Clarity CLEAR Urine pH 5.5 5-9 Urine Specific [place] 1.015 L 1.016-1.022 Urine Protein TRACE H NEGATIVE Urine Glucose (UA) NEGATIVE NEGATIVE Urine Ketones NEGATIVE NEGATIVE Urine Nitrite NEGATIVE NEGATIVE Urine Bilirubin NEGATIVE NEGATIVE Urine Urobilinogen 0.2 < = 1.0 MG/DL Urine Leukocyte Esterase 1+ H NEGATIVE Urine RBC (Auto) 3+ H NEGATIVE Urine RBC 0-2 /HPF Urine WBC NONE /HPF Urine Squamous Epithelial Cells /HPF Urine Crystals PRESENT H /LPF Urine Amorphous Sediment FEW YESICA URATES H /LPF Urine Bacteria LARGE H /HPF Urine Casts PRESENT /LPF Urine Hyaline Casts 0-2 H /LPF Urine Mucus MODERATE H /LPF Urine Culture Indicated CULTURE PENDING Glucometer 153 H 70-110 MG/DL Test 08/17/23 01:40 08/17/23 02:37 08/17/23 03:15 Range/Units Lactic Acid Level 1.40 0.50-2.00 MMOL/L Glucometer 143 H 135 H 70-110 MG/DL My Orders Orders - LACHO CAMILO MD Cbc And Automated Diff (08/16/23 23:43) Comprehensive Metabolic Panel (08/16/23 23:43) Blood Culture (08/16/23 23:43) Sputum Culture (08/16/23 23:43) Urinalysis (08/16/23:43) Urine Culture (08/16/23:43) Protime With Inr (08/16/23:43) Partial Thromboplastin Time (08/16/23 23:43) Ed Iv/Invasive Line Start (08/16/23 23:43) Vital Signs Adult Sepsis Patie Q15M (08/16/23 23:43) O2 (08/16/23 23:43) Remove Rings In Anticipation O (08/16/23 23:43) Lactic Acid Analyzer (08/16/23 23:43) Ekg Tracing (08/16/23 23:43) Ns Iv 500 Ml (Ns Iv 500 Ml) (08/16/23 23:45) Chest 1 View, Ap/Pa Only (08/17/23 00:01) Manual Differential (08/16/23 23:05) Calcium Gluconate 1gm Ivpb (Calcium Gluc (08/17/23 01:00) Calcium Gluconate 1gm Ivpb (Calcium Gluc (08/17/23 01:00) Lidocaine 2% (Urojet) (Lidocaine 2% (Uro (08/17/23 00:59) Catheter(Urinary) Insert & Ass 03,15 (08/17/23 01:08) Lidocaine 2% (Urojet) (Lidocaine 2% (Uro (08/17/23 01:15) Ed Iv/Invasive Line Start (08/17/23 01:20) Accucheck Stat ONCE (08/17/23 01:20) D50w (Emergency) Syringe (Dextrose 50% 5 (08/17/23 01:30) Insulin (Regular) Per Unit (Insulin (Reg (08/17/23 01:20) Cefepime Injection (Cefepime Injection) (08/17/23 01:30) 1/2 Ns Iv Solution... W/Sodium Bicarbona (08/17/23 02:03) 1/2 Ns Iv Solution 1000 Ml (1/2 Ns Iv So (08/17/23 02:12) Sodium Bicarbonate 8.4% Syr (Sodium Bica (08/17/23 02:12) Accucheck Stat ONCE (08/17/23 02:33) D50w (Emergency) Syringe (Dextrose 50% 5 (08/17/23 02:45) Insulin (Regular) Per Unit (Insulin (Reg (08/17/23 02:45) Accucheck Stat ONCE (08/17/23 03:13) Medications Given in ED Current Medications Medications Dose Ordered Sig/Rachel Route Start Time Stop Time Status Last Admin Dose Admin Calcium Gluconate/ Sodium Chloride 100 ml @ 120 mls/hr ONCE ONCE IV 08/17/23 01:00 08/17/23 01:49 DC 08/17/23 01:04 120 MLS/HR Calcium Gluconate/ Sodium Chloride 100 ml @ 120 mls/hr ONCE ONCE IV 08/17/23 01:00 08/17/23 01:49 DC 08/17/23 01:58 120 MLS/HR Cefepime HCl 1000 mg/Sodium Chloride 50 ml @ 100 mls/hr ONCE ONCE IV 08/17/23 01:30 08/17/23 01:59 DC 08/17/23 01:52 100 MLS/HR Dextrose 50 ml ONCE ONCE IV 08/17/23 01:30 08/17/23 01:31 DC 08/17/23 01:48 50 ML Dextrose 50 ml ONCE ONCE IV 08/17/23 02:45 08/17/23 02:47 DC 08/17/23 02:56 50 ML Lidocaine HCl 10 ml ONCE ONCE TOP 08/17/23 01:15 08/17/23 01:16 DC 08/17/23 01:10 10 ML Sodium Chloride 500 ml @ 0 mls/hr Q0M ONCE IV 08/16/23 23:45 08/16/23 23:46 DC 08/17/23 00:45 0 MLS/HR Vital Signs/I&O 08/16/23 22:58 Temp 36.5 Pulse 91 Resp 17 B/P (MAP) 133/87 (102) Pulse Ox 96 O2 Delivery Room Air Capillary Refill : Less Than 3 Seconds Blood Pressure Mean: 102 Point of Care Testing Finger Stick Blood Glucose: 153 Progress Note : Progress Note And evaluated. Sepsis protocol initiated due to weakness and history of prostate cancer with metastasis. IV established by EMS. Normal saline 500 mL bolus, labs including CBC, CMP, coags, blood cultures and lactic acid as well as UA and urine culture ordered. Get chest x-ray and EKG. Monitor patient. Differential diagnosis includes pneumonia, UTI, electrolyte abnormality, dehydration, sequela of metastatic cancer 0052: Patient has chest x-ray findings of right lower lobe infiltrate which is new from a few days ago when his port was placed. He also has multiple lesions in both lungs consistent with metastatic cancer on my interpretation. Labs have returned and CBC shows white count of 11.1 with hemoglobin of 8.9 and normal platelets with 7 bands. Coags show slightly elevated PTT at 16.7 and patient is on Xarelto. Chemistries show elevated lactic acid at 2.39 with sodium of 132 and potassium of 8.0. BUN is 118 and creatinine is 15.76 which are both markedly different from normal levels noted in May of this year. Glucose slightly elevated at 127. Alk phos is 140 and otherwise LFTs are normal. Findings concerning for acute renal failure. Bladder scan done and noted 1200 mL of urine in [place] catheter ordered. We will initiate calcium gluconate 2 A IV. 0121: D50 W ordered 1 amp and 5 units of insulin. We will also initiate cefepime 1 g IV for pneumonia. 0130: I have initiated transfer proceedings as patient exceeds level of this hospital as we have no nephrology or dialysis capability. Patient has requested [place]. Both [facility] in [place] and [facility] in [place] are at capacity and are not taking new patients currently. I have made contact with [facility] [place] and they will look at bed placement either in [place] or [place] which ever is available. This was discussed with the family and patient who agree. Currently we have greater than 500 mL of urine out and we are draining that slowly now. Monitor patient. Currently we have no EMS available and patient will need to go by flight and this was discussed with the patient who agreed. 0155: I spoke with Dr. Valentino at [facility] in [place] who is excepted the patient for transfer to their facility. He is requesting bicarb drip and that will be ordered. Patient will go by flight. 0206: [place] has been initiated and they will arrive in 51 minutes. Sodium bicarb drip to run at 150 mL an hour has been ordered. UA is processed and no findings for urinary tract infection but does have crystals large bacteria, 0-2 reds and negative WBCs. Pending transfer. Films should be available to the [facility] facility via PACS but we will send CD if not available. I have repeated D50 1 amp and insulin 5 units IV for treatment of hyperkalemia. Patient's blood sugar did trend down quickly with just 5 units of insulin so we will repeat that and give more sugar. Pending flight crew. 0330 flight crew has arrived and is preparing to depart. Report to flight crew by me. All questions answered with the family. Patient to [facility] in [place]. ECG Initial ECG Impression Date: Aug 16, 2023 Initial ECG Impression Time: 23:55 Initial ECG Rate: 91 Initial ECG Rhythm: S.Tach Comment Tachycardia with normal but leftward axis. Mildly peaked T waves lateral leads. No evidence of ST elevation MT. Interpreted by me. Critical Care Note Critical Care Start Time: 23:40 Stop Time: 03:30 Total Time (minutes) 45 minutes excluding separately billable procedures. See progress note for d etails. Departure Impression Primary Impression: Acute renal failure Qualified Codes: N17.9 - Acute kidney failure, unspecified Additional Impressions: Hyperkalemia Right lower lobe pneumonia Qualified Codes: J18.9 - Pneumonia, unspecified organism Prostate cancer metastatic to lung Disposition: XFER SHT-TRM HOSP Condition: Critical Transfer Transfer Reason: Exceeds level of care Time Spoke to Accepting Phy: 01:55 Transfer Time: 03:30 Transfer Facility: [place], [place], Dr. Valentino accepting Method of Transfer: Air Departure-Patient Inst. Referrals: [facility] [place] (PCP/Family) Primary Care Physician LACHO CAMILO MD Aug 17, 2023 01:36
[2023-08-17 01:56] LABS: BILIRUBIN,URINE NEGATIVE (NEGATIVE); CLARITY,URINE CLEAR; COLOR,URINE YELLOW; GLUCOSE, URINE (UA) NEGATIVE (NEGATIVE); KETONES,URINE NEGATIVE (NEGATIVE); NITRITE,URINE NEGATIVE (NEGATIVE); PH,URINE 5.5 (5-9); PROTEIN,URINE TRACE (NEGATIVE)
[2023-08-17 01:57] LABS: AMORPHOUS SEDIMENT,UR FEW AMOR URATES /LPF; BACTERIA,URINE LARGE /HPF; HYALINE CASTS, URINE 0-2 /LPF; LEUKOCYTE ESTERASE ,URINE 1+ (NEGATIVE); RBC,URINE 0-2 /HPF
[2023-08-17] MEDS ORDERED: SODIUM BICARBONATE IV STA (02:03)
[2023-08-17] MEDS ORDERED: 1/2 NS IV STA (02:03)
[2023-08-17] MEDS ORDERED: SODIUM BICARB 8.4% 50 MEQ/50 ML (ABBOTT) SYR ONE (02:12)
[2023-08-17] MEDS ORDERED: 1/2 NS IV SOLUTION 1000 ML 1,000 ML IV ONE (02:12)
[2023-08-17 03:30] VITALS: BP 137/91
--- NOTE | 2023-08-17 08:04 | Diagnostic Imaging Report ---
EXAMINATION: Chest radiograph, portable AP view. DATE: 08/17/2023 12:16 AM INDICATION: 78-year-old male, weakness. COMPARISON: August 14, 2023. FINDINGS: The right-sided port catheter tip is at the level of the upper SVC. Heart size and mediastinal contours are unchanged. There are multiple bilateral pulmonary nodules. There is nonspecific right basilar airspace consolidation which is an interval worsening since the comparison exam. There is no identified pneumothorax. There is a right shoulder prosthesis. There is severe left glenohumeral arthritis. IMPRESSION: 1. Multiple bilateral pulmonary nodules again noted. Metastatic disease, septic emboli, and granulomatous processes are in the differential diagnosis. 2. New nonspecific right basilar airspace consolidation which may relate to infiltrate, effusion, and/or atelectasis. Dictated by: Dictated on workstation # [id number]
== END 2023-08-17 03:30 | disposition short-term general hospital (02) ==
LOC: EDUNIT# 22:56 → ER 22:57
DX: N17.9 Acute kidney failure, unspecified (principal); E87.5 Hyperkalemia; C61 Malignant neoplasm of prostate; C78.00 Secondary malignant neoplasm of unspecified lung; J18.9 Pneumonia, unspecified organism; R74.02 Elevation of levels of lactic acid dehydrogenase [LDH]; R00.0 Tachycardia, unspecified; Z79.01 Long term (current) use of anticoagulants; Z79.899 Other long term (current) drug therapy
CPT/HCPCS: 36415; 51702; 71045; 80053; 81000; 82947; 83605; 85007; 85027; 85610; 85730; 87040; 87088; 93005